=== PATIENT | female | born 1965 | race Caucasian/White ===

== ENCOUNTER → 2019-03-08 10:17 | Outpatient (CLI) | payer OTHER, SELFPAY ==
[2019-03-08 13:39] LABS: Hematocrit 40.1 % (37-47); Hemoglobin 13.4 g/dl (12.0-15.0); Mean Corp Hgb Conc 33.4 g/gl (32-36); Mean Corpuscular Hgb 30.3 pg (27.0-32.0); Mean Corpuscular Volume 90.7 fL (81-99); Mean Platelet Vol. 9.6 fl (6.2-12.0); Platelet Count 216 K/mm3 (150-450); RBC Distribution Width CV 12.5 % (11.6-14.6); RBC Distribution Width SD 41.8 fl (35.1-43.9); Red Blood Count 4.42 M/mm3 (4.2-5.4); White Blood Count 4.8 K/mm3 (4.4-11.0)
[2019-03-08 13:40] LABS: Scan Indicated on CBC? Y/N NO
[2019-03-08 13:59] LABS: Estradiol 16.4 pg/mL; Free T3 2.8 pg/mL (2.18-3.98); T4 Free Direct 1.19 ng/dL (0.76-1.46); Thyroid Stim Hormone (TSH) 0.51 uIU/mL (0.358-3.74)
[2019-03-08 14:05] LABS: Hemoglobin A1c 5.4 % (4.2-6.3)
[2019-03-08 15:13] LABS: Progesterone Level 0.04 ng/mL (See Comment)
[2019-03-09 04:07] LABS: DHEA Sulfate 15.6 ug/dL (29.4-220.5)
[2019-03-09 11:14] LABS: Thyroid Peroxidase AB 17 IU/mL (0-34)
== END ==
PROVIDERS: Visit Provider Obstetrics & Gynecology
DX: N83.209 Unspecified ovarian cyst, unspecified side (principal)
CPT/HCPCS: 36415; 82533; 82627; 82670; 83036; 84144; 84403; 84439; 84443; 84481; 85027; 86376; 82626

== ENCOUNTER → 2019-03-08 10:56 | Outpatient (CLI) | payer OTHER, SELFPAY ==
--- NOTE | 2019-03-08 11:06 | BI_ITS ---
MAMMOGRAPHY - BILATERAL SCREENING REASON FOR EXAM: Female, 54 years old. Routine annual screening examination. PERTINENT HISTORY: Mother with breast cancer. Grandmother with breast cancer. TECHNIQUE: Digital bilateral breast celina (3D mammographic acquisition) in the CC and MLO projections. 2-D mediolateral oblique (MLO) and craniocaudad (CC) views of both breasts were obtained. CAD: Full Field Digital Mammography with Computer Added Detection was performed. COMPARISON: Comparison is made with prior examination dated August 26, 2017 and December 11, 2013. FINDINGS: Breast Composition: There are scattered areas of fibroglandular density. There now is evidence of a 1.5 cm x 1.5 cm spiculated nodular density in the medial retroareolar areolar region of the left breast. This was not present on prior examination. Correlation with ultrasound is recommended for further evaluation. No other significant abnormalities are identified. BI/SCREEN MAMM (CAD) W/CELINA BILAT IMPRESSION: 1.5 cm x 1.5 cm spiculated nodular density in the medial retroareolar region of the left breast as described. Correlation with ultrasound is recommended. ASSESSMENT CATEGORY: BIRADS Category 0: Incomplete. Need additional imaging evaluation. A letter regarding these results will be sent to the patient by the facility within 30 days. Approximately 10% of breast cancers are not detected by mammography. A normal mammogram should not delay biopsy of a clinically suspicious abnormality. [id number] Electronically Signed: Harrison Cruz, at 13:55 EDT , Service support ,
--- NOTE | 2019-03-08 12:56 | US_ITS ---
STUDY: ULTRASOUND BREAST - RIGHT REASON FOR EXAM: Female, 54 years old. Abnormal screening mammogram. TECHNIQUE: Axial and longitudinal images of the RIGHT breast were performed with a high resolution ultrasound transducer. COMPARISON: Comparison is made with prior mammogram done earlier in the day. FINDINGS: RIGHT Breast: The lateral half of the right breast was examined by ultrasound. There is heterogeneous fibroglandular tissue. No solid or cystic mass lesion is seen. IMPRESSION: Unremarkable ultrasound of the lateral aspect of the right breast. ASSESSMENT CATEGORY: BIRADS Category 1: Negative. A letter regarding these results will be sent to the patient by the facility within 30 days. Electronically Signed: Harrison Cruz, at 13:57 EDT , Service support , STUDY: ULTRASOUND BREAST - LEFT REASON FOR EXAM: Female, 54 years old. Abnormal screening mammogram. TECHNIQUE: Axial and longitudinal images of the LEFT breast were performed with a high resolution ultrasound transducer. COMPARISON: Comparison is made with prior mammogram done earlier today. FINDINGS: LEFT Breast: There is a 7 mm x 9 mm x 4 mm hypoechoic irregular nodular density with posterior acoustical shadowing at the 10:00 position of the breast at 3 cm from the nipple. A similar appearing hypoechoic nodular density measuring 4 mm x 5 mm x 7 mm is seen adjacent to this nodule. Biopsies are recommended. US/Breast Limited Unilateral IMPRESSION: 2 adjacent hypoechoic irregular solid nodules with posterior acoustical shadowing are seen at the 10:00 position breast at 3 cm some the nipple. Biopsy is recommended. ASSESSMENT CATEGORY: BIRADS Category 5: Highly Suggestive of Malignancy - Appropriate Action Should Be Taken. A letter regarding these results will be sent to the patient by the facility within 30 days. Electronically Signed: Harrison Cruz, at 13:59 EDT , Service support ,
== END ==
PROVIDERS: Referring Provider Obstetrics & Gynecology; Visit Provider Obstetrics & Gynecology
DX: Z12.31 Encounter for screening mammogram for malignant neoplasm of breast (principal); R92.8 Other abnormal and inconclusive findings on diagnostic imaging of breast; Z80.3 Family history of malignant neoplasm of breast
CPT/HCPCS: 76642; 77063; 77067

== ENCOUNTER → 2019-03-16 07:54 | Outpatient (CLI) | payer OTHER, SELFPAY ==
--- NOTE | 2019-03-16 07:57 | US_ITS ---
STUDY: ULTRASOUND OF THE FEMALE PELVIS - COMPLETE REASON FOR EXAM: Female, 54 years old. Left ovarian mass TECHNIQUE: Transabdominal and transvaginal. (Transvaginal imaging, if present, was performed for enhanced visualization of uterus and endometrium, and posterior adnexal structures). COMPARISON: None. FINDINGS: Uterus anteverted, midline, 6.4 x 3.7 x 2.9 cm. Fundal fibroid 13 x 17 x 12 mm. 5 x 3 x 2 mm calcification at the margin of the uterine body endometrial. Nonspecific. Endometrial thickness 2 mm, oval echotexture. Normal cervix. Right ovary not visualized. No visible right adnexal mass or cyst. No cul-de-sac or adnexal free fluid. Left ovary 45 x 50 x 31 mm, multiple closely adjacent ovarian cysts, the largest measuring 3.4 x 2.0 x 2.8 cm and 2.5 x 2.1 x 2.1 cm. Minimally thickened internal septations, small echogenic foci in the septations possibly calcified, minimal debris. Partially complex cystic mass. US/Pelvic (Non ) IMPRESSION: Partially complex cystic mass of the left ovary as described above, with somewhat irregular and thickened septations and debris. Malignancy must be considered. Right ovary not visualized. No acute other malady of the uterus or endometrium. Electronically Signed: José Luis Nash MD at 16:06 EDT Tel , Service support ,
--- NOTE | 2019-03-16 08:16 | US_ITS ---
STUDY: ULTRASOUND OF THE FEMALE PELVIS - COMPLETE REASON FOR EXAM: Female, 54 years old. Left ovarian mass TECHNIQUE: Transabdominal and transvaginal. (Transvaginal imaging, if present, was performed for enhanced visualization of uterus and endometrium, and posterior adnexal structures). COMPARISON: None. FINDINGS: Uterus anteverted, midline, 6.4 x 3.7 x 2.9 cm. Fundal fibroid 13 x 17 x 12 mm. 5 x 3 x 2 mm calcification at the margin of the uterine body endometrial. Nonspecific. Endometrial thickness 2 mm, oval echotexture. Normal cervix. Right ovary not visualized. No visible right adnexal mass or cyst. No cul-de-sac or adnexal free fluid. Left ovary 45 x 50 x 31 mm, multiple closely adjacent ovarian cysts, the largest measuring 3.4 x 2.0 x 2.8 cm and 2.5 x 2.1 x 2.1 cm. Minimally thickened internal septations, small echogenic foci in the septations possibly calcified, minimal debris. Partially complex cystic mass. US/Transvaginal Non- IMPRESSION: Partially complex cystic mass of the left ovary as described above, with somewhat irregular and thickened septations and debris. Malignancy must be considered. Right ovary not visualized. No acute other malady of the uterus or endometrium. Electronically Signed: José Luis Nash MD at 16:06 EDT Tel , Service support ,
== END ==
PROVIDERS: Family Provider Family Medicine; PCP Family Medicine; Referring Provider Obstetrics & Gynecology; Visit Provider Obstetrics & Gynecology
DX: N83.292 Other ovarian cyst, left side (principal)
CPT/HCPCS: 76830; 76856

== ENCOUNTER → 2019-03-22 09:34 | Outpatient (CLI) | payer OTHER, SELFPAY ==
--- NOTE | 2019-03-22 | IMM_PTH ---
PATIENT: JAX ASH LOC: [facility] U#:[id number] AGE/SX: 60/F ROOM: RE03/22/[address]: Dr. Shreyas Valente MD : 1965 BED: DIS: SPEC #: [id number] RECD: 03/23/19 11:30 STATUS: DIONNE RETosha #: [id number] CRISTOPHER: 03/22/19 00:[address]: Shreyas Valente DEPT: IMMUNOHISTOCHEMISTRY RECD BY: Nelda Serrato ENTERED: 03/23/19 11:31 SP TYPE: IMMUNO OTHR DR: Dr. Enrrique Ohara MD No Primary Care Phys Tissues: B - Left breast, NOS Procedures: E-CAD (add) HER2 GUERITA (add) KI-67 (add) CT (add) ER (initial) PHYSICIAN & INSTITUTION [place] [address] SPECIMEN INFORMATION: Tissue Source: B - Larger lesion upper inner left breast Clinical Info: Abnormal left breast ultrasound Specimen Number: [id number] CPT code: 93353, 30159, 80266 x3 METHODOLOGY: Deparaffinized sections of prefer/formalin-fixed tissue or PAP/DQ stained slides are incubated with monoclonal/polyclonal antibodies/oligonucleotide probes. Localization is made via biotin free immunoperoxidase method. Appropriate controls are performed and reacted as expected. Results on target cell population are indicated in the following table: RESULTS: ANTIBODY / CLONE RESULT E-Cad (ECH-6) positive Ki-67 (30-9) positive in 10% of tumor cells MORPHOMETRIC ANALYSIS ER (clone 6F11) >90% CT (clone 16/1E2) <5% Her-2Neu (clone CB11) 1+ The prognostic test for HER2 is performed on formalin-fixed paraffin embedded tissue. A 3+ (positive) staining pattern is defined as intense, homogeneous, complete, circumferential membranous staining in >10% of contiguous tumor cells. A similar weak (2+) staining pattern is interpreted as equivocal. KAVITHA follow-up testing is recommended for all equivocal cases. Positivity/negativity for ER/CT is reported if > or < 1% of the tumor cells are immuno- reactive, respectively. The ASCO/CAP criteria is used for scoring. Reference: Journal of Clinical Oncology, 2013; 31:6080-4534 & 2010; 16:1493-0140. Duration of fixation: 11.5 hours Hrs; Sample Adequate: Yes. These assays have not been validated on decalcified tissues. Results should be interpreted with caution given the likelihood of false negativity on decalcified specimens. These tests were developed and their performance characteristics determined by [facility]. They may not have been cleared or approved by the U.S. Food and Drug Administration. The FDA has determined that such clearance or approval is not necessary. INTERPRETATION: Larger lesion, upper inner left breast, biopsy: Consistent with invasive ductal carcinoma. Positive for estrogen receptors (favorable prognostic indicator). Positive for progesterone receptors (favorable prognostic indicator). Negative for overexpression of QPR4jcs. CE:christopher 03/23/19
--- NOTE | 2019-03-22 | IMM_PTH ---
PATIENT: JAX ASH LOC: [facility] U#:[id number] AGE/SX: 60/F ROOM: RE03/22/[address]: Dr. Shreyas Valente MD : 1965 BED: DIS: SPEC #: [id number] RECD: 03/23/19 11:30 STATUS: DIONNE RETosha #: [id number] CRISTOPHER: 03/22/19 00:[address]: Shreyas Valente DEPT: IMMUNOHISTOCHEMISTRY RECD BY: Nelda Serrato ENTERED: 03/23/19 11:31 SP TYPE: IMMUNO OTHR DR: Dr. Enrrique Ohara MD No Primary Care Phys Tissues: B - Left breast, NOS A - Left breast, NOS Procedures: E-CAD (add) HER2 GUERITA (add) KI-67 (add) P53 (add) IN (add) ER (initial) PHYSICIAN & INSTITUTION [place] [address] SPECIMEN INFORMATION: Tissue Source: A - Smaller lesion upper inner left breast, B - Larger lesion upper inner left breast Clinical Info: Abnormal left breast ultrasound Specimen Number: [id number] & B CPT code: 44847 x2, 09790 x4, 63258 x6 METHODOLOGY: Deparaffinized sections of prefer/formalin-fixed tissue or PAP/DQ stained slides are incubated with monoclonal/polyclonal antibodies/oligonucleotide probes. Localization is made via biotin free immunoperoxidase method. Appropriate controls are performed and reacted as expected. Results on target cell population are indicated in the following table: RESULTS: ANTIBODY / CLONE RESULT Block A E-Cad (ECH-6) positive Ki-67 (30-9) positive ~10% P53 (DO-7) positive >50% MORPHOMETRIC ANALYSIS ER (clone 6F11) >90%, strong intensity IN (clone 16/1E2) 0% Her-2Neu (clone CB11) 0-1+ Block B E-Cad (ECH-6) positive Ki-67 (30-9) positive in 10% of tumor cells P53 (DO-7) positive >20% MORPHOMETRIC ANALYSIS ER (clone 6F11) >90%, strong intensity IN (clone 16/1E2) 0-5%, variable, weak intensity Her-2Neu (clone CB11) 1+ The prognostic test for HER2 is performed on formalin-fixed paraffin embedded tissue. A 3+ (positive) staining pattern is defined as intense, homogeneous, complete, circumferential membranous staining in >10% of contiguous tumor cells. A similar weak (2+) staining pattern is interpreted as equivocal. KAVITHA follow-up testing is recommended for all equivocal cases. Positivity/negativity for ER/IN is reported if > or < 1% of the tumor cells are immuno- reactive, respectively. The ASCO/CAP criteria is used for scoring. Reference: Journal of Clinical Oncology, 2013; 31:8384-1282 & 2010; 16:2092-6481. Duration of fixation: 11.5 hours Hrs; Sample Adequate: Yes. These assays have not been validated on decalcified tissues. Results should be interpreted with caution given the likelihood of false negativity on decalcified specimens. These tests were developed and their performance characteristics determined by [facility]. They may not have been cleared or approved by the U.S. Food and Drug Administration. The FDA has determined that such clearance or approval is not necessary. INTERPRETATION: A. Smaller lesion, upper inner left breast, core biopsy: Invasive ductal carcinoma. Positive for estrogen receptors (favorable prognostic indicator). Negative for progesterone receptors (unfavorable prognostic indicator). Negative for overexpression of USG8byc. B. Larger lesion, upper inner left breast, biopsy: Consistent with invasive ductal carcinoma. Positive for estrogen receptors (favorable prognostic indicator). Positive for progesterone receptors (favorable prognostic indicator). Negative for overexpression of EEQ4oby. CE:christopher 03/23/19 AM:christopher 04/03/19 Case has been reviewed in consultation with Dr. Pollock who concurs with the above diagnosis. IDC:SJ
[2019-03-22 07:36] VITALS: BMI 27.4
--- NOTE | 2019-03-22 07:45 | LES_PTH ---
PATIENT: JAX ASH [facility] U#:[id number] AGE/SX: 60/F ROOM: RE03/22/[address]: Dr. Shreyas Valente MD : 1965 BED: DIS: SPEC #: [id number] RECD: 03/22/19 09:10 STATUS: DIONNE NEW #: [id number] CRISTOPHER: 03/22/19 07:[address]: Shreyas Valente DEPT: SURGICAL PATHOLOGY RECD BY: Jn Dorado ENTERED: 03/22/19 09:42 SP TYPE: Lesion OTHR DR: MD Dr. Enrrique Pierre MD No Primary Care Phys Tissues: A - Skin of breast, NOS B - Skin of breast, NOS Procedures: Surgery Specimen Level IV HEADER OPERATION: Left breast biopsy x2 PRE-OP DIAGNOSIS: Abnormal left breast ultrasound TISSUE SUBMITTED: A. Smaller lesion upper inner left breast, B. Larger lesion upper inner left breast MICROSCOPIC DIAGNOSIS A. Upper inner left breast, smaller lesion, needle core biopsy: Invasive ductal carcinoma, nuclear grade 2, involving two out of two needle cores (maximal tumor dimension 0.5 cm). B. Upper inner left breast, larger lesion, needle core biopsy: Invasive ductal carcinoma, nuclear grade 2, involving three out of four needle cores (maximal tumor dimension 0.8 cm). Foci of ductal carcinoma in situ, high grade, with central necrosis. CE:christopher 03/23/19 COMMENT Immunohistochemistry ([id number]) supports the above diagnosis. Case has been reviewed in consultation with Dr. Cisneros/Phill who concurs with the above diagnosis. IDC:CHANDA MICROSCOPIC DESCRIPTION Slides are reviewed. GROSS DESCRIPTION A - Received in fixative is one container labeled with the patient's name and designated biopsy small lesion upper inner left breast. The specimen consists of yellowish-garcia cylindrical core biopsies ranging from 0.5 to 0.9 cm in length and 0.2 cm in diameter. The specimen is totally submitted in one cassette. B - Received in fixative is one container labeled with the patient's name and designated biopsy larger lesion upper inner left breast. The specimen consists of multiple yellowish-garcia cylindrical core biopsies ranging from 0.5 to 1 cm in length and 0.2 cm in diameter. The specimen is totally submitted in one cassette. / FA:christopher 03/22/19 TC:0 CPT: 06861 x2
== END ==
LOC: LABSPEC 09:36
PROVIDERS: Family Provider Family Medicine; Referring Provider Surgery; Visit Provider Surgery
DX: R92.8 Other abnormal and inconclusive findings on diagnostic imaging of breast (principal)
CPT/HCPCS: 88305; 88341; 88342

== ENCOUNTER → 2019-03-26 06:25 | Outpatient (CLI) | payer OTHER, SELFPAY ==
[2019-03-22 07:36] VITALS: BMI 27.4
--- NOTE | 2019-03-26 06:34 | MRI_ITS ---
STUDY: BILATERAL BREAST MR WITHOUT AND WITH CONTRAST REASON FOR EXAM: Female, 54 years old. Prior right duct removal. Abnormal ultrasound with 2 hypoechoic shadowing areas in the left breast for which ultrasound-guided biopsy was performed on March 22, 2019. History of breast cancer in mother at age 76 and grandmother at age 59. TECHNIQUE: Multi-sequence multi-echo imaging of both breasts was performed with a dedicated breast coil. T1-weighted and T2-weighted images were performed before the administration of contrast. T1-weighted images were also performed after the administration of 15 IV Dotarem without complications. COMPARISON: Mammograms dated August 26, 2017 and March 08, 2019 and left breast ultrasound dated March 08, 2019. FINDINGS: RIGHT BREAST: The breast tissue is fatty with minimal background enhancement. There are no abnormal enhancing masses or areas of non-mass enhancement in the right breast. LEFT BREAST: The breast tissue is fatty with minimal background enhancement. In the medial aspect of the left breast corresponding to the mammographic and ultrasonographic abnormalities there is an irregular enhancing mass measuring approximately 1.6 cm x 1.3 cm x 3 cm. There is a tissue clip marker artifact in the lower aspect of this mass. These findings are highly suspicious for carcinoma. There are no enlarged or abnormal lymph nodes. There is no abnormality in the visualized regions of the chest or liver. MRI/Breast Bilateral W/O and W IMPRESSION: Unremarkable right breast. 1.6 x 1.3 x 3 cm irregular enhancing mass in the medial aspect of the left breast corresponding to the area of ultrasonographic and mammographic abnormalities. Findings are highly suspicious for carcinoma. CATEGORY: BIRADS Category 5: Highly Suggestive of Malignancy - Appropriate Action Should Be Taken. A letter regarding these results will be sent to the patient by the facility within 30 days. Electronically Signed: Tiago Boles MD at 15:42 EDT , Service support ,
== END ==
PROVIDERS: Family Provider Family Medicine; PCP Family Medicine; Referring Provider Surgery; Visit Provider Surgery
DX: R92.8 Other abnormal and inconclusive findings on diagnostic imaging of breast (principal); Z80.3 Family history of malignant neoplasm of breast
CPT/HCPCS: 77049; A9575; A4216; C8908

== ENCOUNTER 2019-04-04 10:06 | Observation (INO) | payer OTHER, SELFPAY ==
--- NOTE | 2019-03-27 04:32 | HP_ITS ---
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: No Is patient in pain?: No Allergies erythromycin base Allergy (Intermediate, Verified 03/27/19 15:20) hives/itching benzonatate [From Tessalaysha Perlestefany] Allergy (Mild, Verified 03/27/19 15:20) Hives, itching Medications levothyroxine 100 mcg tablet 100 mcg PO DAILY 03/22/19 [History Confirmed 03/27/19] multivitamin tablet 1 tab PO DAILY 03/22/19 [History Confirmed 03/27/19] sumatriptan 25 mg tablet 12.5 mg PO ONCE PRN tab 03/22/19 [History Confirmed 03/27/19] Is last menstrual period known: No Post menopausal: Yes Patient : No PFSH Medical History (Updated 03/27/19 @ 16:19 by Shreyas Valente MD) Breast cancer (Acute) Abnormal mammogram of left breast (Acute) Abnormal mammogram (Acute) Breast cancer (Acute ~02/2019) Hemorrhoids (Acute) History of back problems (Acute) Thyroid disease (Acute) Surgical History History of (Acute) History of abdominoplasty (Acute) History of arthroscopy of left shoulder (Acute) History of back surgery (Acute) History of endometrial ablation (Acute) History of tonsillectomy (Acute) Family History Mother Breast cancer Diabetes Son Diabetes Grandmother Breast cancer Social History (Updated 03/27/19 @ 16:32 by Shreyas Valente MD) Smoking Status: Never smoker alcohol intake: never substance use type: does not use HPI HPI HPI: JAX ASH, is a 54 F who presents to the office today for HPI HPI Surgical H&P: Yes HPI: JAX ASH is a 54 F who presents to the office today for surgical follow- up of a ultrasound-guided needle core biopsy upper inner left breast x2 lesions as well as a bilateral breast MRI. My previous office notes reflect the following: MR#:[id number]:[id number] Name: JAX ASHRep #:[id number] : 1965 Provider:Shreyas Valente MD Age/Sex: 54/F Location:[facility] Status:Signed Intake Vital Signs 03/22/19 Height 5 ft 6 in 03/22/19 Weight: 170 lb 03/22/19 Body Mass Index (BMI) 27.4 03/22/19 Blood Pressure 119/80 03/22/19 Blood Pressure Location Rt brachial 03/22/19 Respiratory Rate 18 03/22/19 Pulse Rate 67 03/22/19 Pulse Source Monitor 03/22/19 Temperature 97.7 F L 03/22/19 Pulse Ox 98 03/22/19 Oxygen Delivery Method room air Intake Visit Reasons: abn breast US left --core biopsy 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 Required: No Is patient in pain?: No Allergies erythromycin base Allergy (Intermediate, Verified 03/22/19 07:37) hives/itching benzonatate [From Tessalon Perles] Allergy (Mild, Verified 03/22/19 07:39) Hives, itching Medications levothyroxine 100 mcg tablet 100 mcg PO DAILY 03/22/19 [History Confirmed 03/22/19] multivitamin tablet 1 tab PO DAILY 03/22/19 [History Confirmed 03/22/19] sumatriptan 25 mg tablet 12.5 mg PO ONCE PRN tab 03/22/19 [History Confirmed 03/22/19] PFSH Medical History Abnormal mammogram (Acute) Hemorrhoids (Acute) History of back problems (Acute) Thyroid disease (Acute) Surgical History History of (Acute) History of abdominoplasty (Acute) History of arthroscopy of left shoulder (Acute) History of back surgery (Acute) History of endometrial ablation (Acute) History of tonsillectomy (Acute) Family History Mother Breast cancer Diabetes Son Diabetes Grandmother Breast cancer Social History (Updated 03/22/19 @ 19:28 by Shreyas Valente MD) Smoking Status: Never smoker alcohol intake: never substance use type: does not use HPI: JAX ASH, is a 54 F who presents to the office today for surgical consultation regarding an abnormal left mammogram and breast ultrasound. She is accompanied by Priscilla. 54-year-old female. A0. Menarche was at age 11. First child was born when she was 18. She has had a remote excision of some right breast ducts. She was briefly on hormone replacement therapy 2012 through 2014. Family history is notable for a mother and grandmother and maternal grandmother all who had breast cancer. The patient's mother was supposed to pursue genetic testing but has not yet done so. The patient has always detected a more dense feeling of the inner aspect of the left breast. Because of some chest pain in 2013 she had a cardiac stress test which was not read as of March 08, 2019 her hemoglobin was 13.4 hematocrit 40.1 and platelet count 216,000. Thyroid function tests were normal. She is aware that she needs to have a screening colonoscopy and that is scheduled for the near future as well in [facility] . HPI HPI HPI: JAX ASH, is a 54 F who presents to the office today for ROS General General: No weight change, appetite, fatigue, colon cancer, breast cancer or weakness HEENT HEENT: No difficulty swallowing, eye injury, eye surgery, swollen glands or hoarseness Endo Endocrine: Yes thyroid disease; no diabetes mellitus, thyroid cancer, Hair loss, heat intolerance or cold intolerance Skin Skin: No rash or changing moles Breast Breast: Yes abnormal mammogram and abnormal US; no left breast lump, right breast lump, nipple discharge, breast pain or breast enlargement Musc Musculoskeletal: Yes back problems; no arthritis, rheumatoid arthritis, gout or joint pain Cardio Cardiovascular: No murmur, pacemaker, heart disease, atrial fibrillation, high blood pressure, heart attack, heart stent, palpitations, shortness of breat with exertion or chest pain Psych Psychiatric: No depression, anxiety or hearing voices Resp Respiratory: No shortness of breath, No sleep apnea, No cough, No COPD, No asthma, No emphysema, No wheezing Gastro Gastrointestinal: No abdominal pain, No nausea or vomiting, No diarrhea, No constipation, No blood in stool, No acid reflux, Yes hemorrhoids, No ulcers, No gallbladder problem, No black,tarry stools Jose Hematologic: No blood thinners, No blood disorders, No bleeding, No anemia, No blood clots Neuro Neurologic: No system reviewed and no additional complaints, except as docu, No as per HPI, No abnormal walking, No abnormal hearing, No abnormal movements, No abnormal speech, No behavioral changes, No burning sensations, No confusion, No seizure-like activity, No unsteadiness, No dizziness, No localized weakness, No frequent falls, No headache(s), No lack of coordination, No loss of vision, No memory loss, No numbness, No other visual disturbances, No radiating pain, No restless legs, No sensory deficit, No fainting, No tingling, No tremor(s), No weakness, No other Exam Const General: cooperative, healthy appearing, comfortable, no acute distress Nutritional Appearance: average body habitus Orientation: alert, awake, oriented x3 HENMT Head: normal to inspection Eyes General: appearance normal, both eyes and all related structures Chest Breast Palpation: No nipple discharge Other: Right breast. No focal mass no nipple discharge no axillary or clavicular adenopathy Left breast mild diffuse fibrous change upper inner left breast without distinct mass. No distortion. No nipple discharge. No axillary or clavicular Resp Effort & Inspection: normal respiratory effort Auscultation: clear to auscultation bilaterally Cardio Rate: regular rate Rhythm: regular rhythm Heart Sounds: no murmurs GI Palpation: soft, no hepatosplenomegaly Auscultation: normal bowel sounds Musc Cervical Spine: normal cervical lordosis Skin Lesions: no lesions Neuro Cranial Nerves: CN's II-XI intact bilaterally Extrem General: no calf tenderness bilaterally Other: Slightly diminished range of motion left shoulder secondary to recent surgery Psych Affect: normal affect Office Procedures Biopsy Provider Documentation Ultrasound-guided needle core biopsy upper inner left breast lesions x2 Timeout and informed consent was obtained. 54-year-old female is taken the procedure room placed on the table the left breast was sterilely prepped and draped. The slightly smaller and slightly larger densities in the upper inner left breast were felt to be identified although slightly challenging. Ultrasound guidance 1% lidocaine mixed 50-50 with 0.5% Marcaine was instilled as a local anesthetic. A total of 15 cc was used. A small stab incision was created in the upper mid left breast a 14-gauge Monopty needle was advanced to prefire depth pre-and post fire films were obtained 3 cores were obtained of each lesion marking clips were left in position. The specimens were immediately submitted in formalin. Pressure is held for hemostasis she did have some oozing but that was well controlled. Steri-Strip Telfa OpSite dressing applied. She tolerated the procedure quite nicely there is no apparent complication. Shreyas Valente M.D., F.A.C.S. Alert Design Drafter Chief Yes Biopsy Breast Biopsy: [id number] US Guidance (x2) Procedure Time Out Time Out Informed consent given: Yes Consent signed: Yes Time out checklist: patient, procedure, site marked/identified, positioning of patient, supplies available, allergies confirmed, team agrees on procedure Time out staff in room: Yes Time out verified: Yes Time out date: 03/22/19 Time out time: 07:38 Assessment & Plan Problems 1. Abnormal mammogram of left breast R92.8 Plan Abnormal mammogram upper inner left breast with 2 lesions highly suspicious for breast cancer. In detail I have discussed this possibility/probability with the patient. I do recommend bilateral breast MRI. Priscilla was present throughout the discussion. It is of note that the patient had some mild abnormality seen on right breast mammogram which was not confirmed with right breast ultrasound. This will also be investigated with MRI. Patient will return to my office for pathology discussion. If this area is localized to the upper inner left breast then she would still be a candidate for breast conservation surgery. Hematology oncology consultation while want to be obtained preprocedure secondary to the patient's family history. As noted genetic testing is still pending. She has had an opportunity to ask and have questions answered. I very much appreciate the kind opportunity of assisting with her surgical care and will pursue ongoing follow-up. Dr. Tarsha Woods is pursuing the left ovarian cystic issue. Shreyas Valente M.D., F.A.C.S. Orders Orders: Biopsy Today R92.8 Breast Bilateral W/O and W Today R92.8, Z80.3 Coding Level of Care Code Off vis,new,level 4 Diagnoses Abnormal mammogram of left breast R92.8 Additional Codes Biopsy - Breast Biopsy: 12586 US Guidance (75323) 03/22/191927<Electronically signed by Shreyas Valente MD> Date Shreyas Valente MD ROS General General: No weight change, appetite, fatigue, colon cancer, breast cancer or weakness HEENT HEENT: No difficulty swallowing, eye injury, eye surgery, swollen glands or hoarseness Endo Endocrine: Yes thyroid disease; no diabetes mellitus, thyroid cancer, Hair loss, heat intolerance or cold intolerance Skin Skin: No rash or changing moles Breast Breast: Yes abnormal mammogram and abnormal US; no left breast lump, right breast lump, nipple discharge, breast pain or breast enlargement Musc Musculoskeletal: Yes back problems; no arthritis, rheumatoid arthritis, gout or joint pain Cardio Cardiovascular: No murmur, pacemaker, heart disease, atrial fibrillation, high blood pressure, heart attack, heart stent, palpitations, shortness of breat with exertion or chest pain Psych Psychiatric: No depression, anxiety or hearing voices Resp Respiratory: No shortness of breath, No sleep apnea, No cough, No COPD, No asthma, No emphysema, No wheezing Gastro Gastrointestinal: No abdominal pain, No nausea or vomiting, No diarrhea, No constipation, No blood in stool, No acid reflux, Yes hemorrhoids, No ulcers, No gallbladder problem, No black,tarry stools Jose Hematologic: No blood thinners, No blood disorders, No bleeding, No anemia, No blood clots Neuro Neurologic: No weakness Exam Chest Breast Palpation: No nipple discharge Cardio Heart Sounds: no murmurs Assessment & Plan Problems 1. Malignant neoplasm of upper-inner quadrant of left breast in female, estrogen receptor positive C50.212; Z17.0 Plan 54-year-old female who returns for 30-minute office consultative discussion regarding biopsy and MRI results. It is pertinent that the patient's mother and maternal grandmother and great paternal grandmother all had breast cancer. The patient's mother was to pursue genetic testing after her recent diagnosis but is currently scheduled September 2019 for this consultation. The patient had 2 lesions within close proximity upper inner left breast. On March 22 I performed a ultrasound-guided needle core biopsy of these 2 areas. Both appear to be invasive ductal carcinoma, nuclear grade 2, estrogen receptor greater than 90%. Progesterone receptor less than 5%. HER-2/glenda 1+. Because of the double lesions upper inner quadrant left breast I did pursue a breast MRI on March 26, 2019 at the [facility]. This demonstrates an unremarkable right breast. There is a 1.6 x 1.3 x 3 similar irregular enhancing mass medial aspect of the left breast findings highly suspicious for carcinoma BI-RADS 5. It is of note therefore that the MRI seems to conglomerate the 2 lesions into 1 general area. Today's discussion regarding treatment options. The patient has already done a significant amount of research. 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 She is interested in pursuing a therapeutic left mastectomy and a prophylactic right mastectomy. In detail I discussed the potential for nuclear tracer and blue dye left axillary sentinel lymph node biopsies with frozen section and possible conversion to a level 1 and 2 axillary lymph node dissection with a left total mastectomy. We discussed the addition of a prophylactic right total mastectomy. We compared and contrasted that to breast conservation surgery on the left. We discussed the potential for immediate or delayed reconstruction. The patient expressed concern regarding immediate reconstruction and the possible influence it might have on delaying additional treatment. She also recants that she is in need of a robotic hysterectomy because of the left ovarian finding which is currently felt to be benign but requiring definitive surgery. She has had an opportunity to ask and have questions answered. I believe that her thought process is logical. I am requesting hematology oncology consultation preoperatively patient and family request Dr. Mcdaniels. Patient's works at [employer] and wants to stay within the [facility] cancer [facility] program. Tentatively we will schedule definitive surgery for April 04, 2019 allowing for preoperative consultation. I very much appreciate the ongoing opportunity of assisting with her surgical care. CC:Dr Enrrique Ohara and Dr Tarsha Woods and Dr. Tavo Valente M.D., F.A.C.S. Orders Referrals: Oncology C50.919 Coding Level of Care Code Off vis,est,level 3 Diagnoses Malignant neoplasm of upper-inner quadrant of left breast in female, estrogen receptor positive C50.212; Z17.0 ??Breast location: upper inner quadrant of breast ??Estrogen receptor status: positive ??Patient sex: female ??Laterality: left 03/27/19 1633 <Electronically signed by Shreyas romano MD> Date _ Shreyas Valente MD I have re-examined the patient. There are no clinical changes since date of exam.
[2019-03-27 15:20] VITALS: BMI 27.4
[2019-04-02 15:03] VITALS: BMI 28.3
--- NOTE | 2019-04-02 16:07 | EKG12_ITS ---
Test Reason : PRE OP Blood Pressure : / mmHG Vent. Rate : 056 BPM Atrial Rate : 056 BPM P-R Int : 150 ms QRS Dur : 074 ms QT Int : 444 ms P-R-T Axes : 062 024 035 degrees QTc Int : 428 ms Sinus bradycardia Otherwise normal ECG Confirmed by DK CHACKO, VON ([id number]), video effects editor GABO GRACIA ([id number]) on 04/03/2019 1:33:58 PM Referred By: Shreyas Valente Confirmed By:VON ROOT MD
--- NOTE | 2019-04-02 16:10 | RAD_ITS ---
STUDY: X-RAY CHEST REASON FOR EXAM: Female, 54 years old. Preop mastectomy TECHNIQUE: PA and lateral views of the chest. COMPARISON: None. FINDINGS: The lateral view demonstrates partial visualization of a biopsy marker within the left breast. The lungs are clear and expanded. There is no demonstrated pleural abnormality. Normal size heart. Normal mediastinum and colleen. Normal visualized pulmonary arteries. Normal visualized aortic arch and descending thoracic aorta. There are diffuse degenerative changes of the visualized thoracic spine. Normal visualized ribs, clavicles, and shoulders. There is no demonstrated abnormality of the visualized soft tissue structures of the upper abdomen. RAD/Chest PA and Lateral IMPRESSION: No visualized focal infiltrate. Biopsy marker left breast. Electronically Signed: Celia Cruz MD at 17:25 EDT Tel , Service support ,
[2019-04-02 16:34] LABS: ALB/GLOB Ratio 1.1 RATIO (0.9-2.4); AST(SGOT) 22 U/L (15-37); Alanine Aminotransfer ALT/SGPT 24 U/L (13-56); Albumin, Serum 3.6 g/dL (3.2-5.0); Alkaline Phosphatase 94 U/L (45-117); Anion Gap 2 (5-15); BUN 11 mg/dL (7-18); BUN/Creat Ratio 13.6 RATIO (10-20); Calcium,Total 8.6 mg/dL (8.5-10.1); Chloride 109 mmol/L (98-107); Creatinine, Serum 0.81 mg/dL (0.55-1.02); EST Glomerular Filtration Rate 78 mL/min (>60); Est Glom Filt Rate - Afr Amer 94 mL/min (>60); Globulin 3.2 g/dL (2.2-4.2); Glucose 85 mg/dL (74-106); Protein, Total 6.8 g/dL (6.4-8.2); Sodium Level 141 mmol/L (136-145)
[2019-04-04] VITALS (10 sets, daily range): BP systolic 91–134; BP diastolic 59–78; PULSE 55–67; RESP 16–18; TEMP 35.9–37.1; O2SAT 94–99; BMI 28.0
--- NOTE | 2019-04-04 | IMM_PTH ---
PATIENT: JAX ASH LOC: MS2 U#:[id number] AGE/SX: 54/F ROOM: MS212 RE04/04/[address]: Dr. Shreyas Valente MD : 1965 BED: 1 DIS: 04/05/2019 SPEC #: [id number] RECD: 04/09/19 11:55 STATUS: DIONNE REQ #: [id number] CRISTOPHER: 04/04/19 00:[address]: Shreyas Valente DEPT: IMMUNOHISTOCHEMISTRY RECD BY: Nelda Serrato ENTERED: 04/09/19 11:56 SP TYPE: IMMUNO OTHR DR: Dr. Enrrique Ohara MD Tissues: A - Axillary lymph node, NOS Procedures: CK7 (add) Pankeratin (initial) Pankeratin (add) PHYSICIAN & INSTITUTION [place] [address] SPECIMEN INFORMATION: Tissue Source: A - Left sentinel lymph nodes, biopsy Clinical Info: Malignant neoplasm of upper inner quadrant left breast, ER positive Specimen Number: [id number] A1-A4 CPT code: 16333, 73226 x7 METHODOLOGY: Deparaffinized sections of prefer/formalin-fixed tissue or PAP/DQ stained slides are incubated with monoclonal/polyclonal antibodies/oligonucleotide probes. Localization is made via biotin free immunoperoxidase method. Appropriate controls are performed and reacted as expected. Results on target cell population are indicated in the following table: RESULTS: ANTIBODY / CLONE RESULT Block A1 AE1-3 (AE1/AE3/PCK26) negative CK7 (OV-TL12/30) negative Block A2 AE1-3 (AE1/AE3/PCK26) negative CK7 (OV-TL12/30) negative Block A3 AE1-3 (AE1/AE3/PCK26) negative CK7 (OV-TL12/30) negative Block A4 AE1-3 (AE1/AE3/PCK26) negative CK7 (OV-TL12/30) negative These tests were developed and their performance characteristics determined by [facility]. They may not have been cleared or approved by the U.S. Food and Drug Administration. The FDA has determined that such clearance or approval is not necessary. INTERPRETATION: A. Left sentinel lymph nodes, biopsy: Five out of five lymph nodes, negative for metastatic carcinoma. SJ:christopher 04/10/19
--- NOTE | 2019-04-04 | AXNB_PTH ---
PATIENT: JAX ASH LOC: MS2 U#:[id number] AGE/SX: 54/F ROOM: MS212 RE04/04/[address]: Dr. Shreyas Valente MD : 1965 BED: 1 DIS: 04/05/2019 SPEC #: [id number] RECD: 04/04/19 11:19 STATUS: DIONNE RETosha #: [id number] CRISTOPHER: 04/04/19 00:[address]: Shreyas Valente DEPT: SURGICAL PATHOLOGY RECD BY: Nelda Serrato ENTERED: 04/04/19 12:21 SP TYPE: AX NODE BX OTHR DR: Dr. 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 Left sentinel lymph nodes, biopsy: Five out of five lymph nodes are negative for metastatic carcinoma. SJ:christopher 04/04/19 MICROSCOPIC DIAGNOSIS A. Left sentinel lymph nodes, biopsy: Five out of five lymph nodes, negative for metastatic carcinoma. See comment. B. Left breast, mastectomy: Invasive ductal carcinoma. Ductal carcinoma in situ. See cancer summary below. C. Right breast, mastectomy: Benign breast tissue with focal ductal dilatation. Negative for atypia or malignancy. SJ: 04/09/19 INVASIVE BREAST CANCER SUMMARY: (Including specimens A & B) Specimen - total breast (including nipple and skin). Procedure - total mastectomy (including nipple and skin). Lymph node sampling - sentinel lymph nodes Specimen integrity - single intact specimen Specimen laterality - left Tumor site - upper inner quadrant Tumor size: Size of largest invasive carcinoma - 3 x 2 x 1.5 cm Tumor focality - two foci of invasive carcinoma. Size of foci: Larger tumor - 3 x 2 x 1.5 cm Smaller tumor - 0.7 x 0.4 cm (measured microscopically) See comment. Macroscopic and Microscopic extent of tumor: Skin - invasive carcinoma does not invade into the dermis or epidermis. Nipple - ductal carcinoma in situ does not involve nipple epidermis. Skeletal muscle - skeletal muscle is present and is free of carcinoma. Ductal carcinoma in situ (DCIS) - DCIS is present. Extensive intraductal component (EIC) - positive Estimated size (extent) of DCIS - DCIS comprise about 25% of the total tumor volume. Number of blocks with DCIS - 5 Number of blocks examined - 12 Architectural patterns - solid, comedo and cribriform Nuclear grade - grade 3 (high) Necrosis - present, center (expansive comedo necrosis) Lobular carcinoma in situ (LCIS) - not identified Histologic type of invasive carcinoma - invasive ductal carcinoma (no special type) Histologic Grade (Kika grade): Larger tumor: Glandular/tubular differentiation - score 3 Nuclear pleomorphism - score 3 Mitotic count - score 2 Overall grade - 3 (score of 8) Smaller tumor: Glandular/tubular differentiation - score 3 Nuclear pleomorphism - score 2 Mitotic count - score 1 Overall grade - 2 (score of 6) Margins - Margins uninvolved by invasive carcinoma and ductal carcinoma in situ. Both invasive carcinoma and ductal carcinoma in situ are 4 cm away from the closest posterior margin. Treatment effect: Response to presurgical (neoadjuvant) therapy - no known presurgical therapy. Lymph-Vascular invasion - not identified Dermal lymph-vascular invasion - not identified Lymph nodes: Number of sentinel lymph nodes examined - 5 Total number of lymph nodes examined (sentinel and nonsentinel) - 5 Number of lymph nodes with macrometastases, micrometastases and isolated tumor cells - 0 Method of evaluation of sentinel lymph nodes - H & E, multiple levels and IHC. Distant metastasis - not applicable Additional pathologic findings - focal changes consistent with previous biopsy site Ancillary studies - previously performed on section of tumor ([id number] / [id number]). Smaller tumor: ER - positive (>90%, strong intensity) AZ - negative (0%) Her2 glenda - negative (0-1+) Larger tumor: ER - positive (>90%, strong intensity) AZ - positive (variable, 0 to 5%, weak intensity) Her2 glenda - negative (1+) Microcalcifications - not identified Clinical history - Please make reference to previous specimen ([id number]) upper inner left breast, smaller lesion, needle core biopsy with diagnosis of invasive ductal carcinoma and upper inner left breast, larger lesion, needle core biopsy with diagnosis of invasive ductal carcinoma and ductal carcinoma in situ. PATHOLOGIC STAGE: pT2(m) pN0(sn) Mx The above summary is in compliance with [employer] (CAP) Cancer Protocols Checklist and [place] [employer] Committee on Cancer (AJCC), Staging Manual, 8th Ed. COMMENT A. The lymph nodes are negative for metastatic carcinoma on multiple H & E levels and immunohisto-chemical stains for cytokeratins ([id number]). B. The smaller focus of invasive carcinoma including hemorrhagic cavity and area of ductal carcinoma in situ, grossly measure 1 cm in greatest dimension. Smaller focus of invasive carcinoma measures 0.7 cm in greatest dimension. Case has been reviewed in consultation with Dr. Cisneros who concurs with the above diagnosis. IDC:AM MICROSCOPIC DESCRIPTION Slides are reviewed. GROSS DESCRIPTION A - Received fresh for frozen section diagnosis labeled with the patient's name is a specimen designated left breast sentinel lymph node tissue. The specimen consists of a piece of yellow adipose tissue measuring 8 x 4 x 2 cm. Five lymph nodes are identified measuring 0.5 to 1.5 cm in greatest dimension. The lymph nodes are submitted in entirety for frozen section diagnosis as follows: 1 - frozen section, one bisected lymph node, 2 - frozen section, one bisected lymph node, 2 - frozen section, two lymph nodes, 4??frozen section, one lymph node. / SJ:christopher 04/04/19 B - Received in fixative is one container labeled with the patient's name and designated left breast mastectomy tissue. The specimen consists of a mastectomy specimen consisting of breast tissue with overlying skin ellipse measuring 24 x 21 x 6 cm. The overlying skin ellipse measures 17.5 x 7 cm. No skin lesion is identified. The specimen is oriented by a suture marking the lateral margin. The specimen is inked as follows: superior - blue, inferior - green, medial - red, lateral - orange, posterior - black. More dictation will follow after overnight fixation. / SJ: 04/04/19 The nipple appears to be flattened and measures 1 cm in greatest dimension. Sections of the breast tissue reveal two masses in the upper inner portion of breast. The larger mass measures 3 x 2 x 1.5 cm. The second smaller mass consists of hemorrhagic cavity and 0.5 cm away from the larger mass and measures 1 x 1 x 0.5 cm. Sections of the larger mass show a metallic clip. Both masses are 4 cm away from the closest posterior margin. Sections of the rest of the breast tissue reveal yellow adipose cut surfaces mixed with scant, fibrous area. Air Crew Member sections are submitted in 12 cassettes as follows: 1 - nipple, entirely submitted, 2 - perpendicular medial and lateral margins and skin, 3 - perpendicular superior margin, inferior margin and posterior margin, 4 - hemorrhagic cavity/smaller mass, entirely submitted, 5-7 - larger tumor mass, 8 & 9 - medicare sales representative sections adjacent to the larger tumor mass, 10-12 - medicare sales representative sections away from the mass. Sections will be submitted after additional fixation. / SJ: 04/05/19 C - Received in fixative is one container labeled with the patient's name and designated right breast mastectomy tissue. The specimen consists of a mastectomy specimen consisting of breast tissue with overlying skin ellipse measuring 21 x 22 x 6 cm. The overlying skin ellipse measures 19 x 6.5 cm. The nipple is flattened and measures 1 cm in greatest dimension. The specimen is oriented by a suture marking the lateral aspect of the specimen. The specimen is inked as follows: superior margin - blue, inferior margin - green, medial margin - red, lateral margin - orange, posterior margin - black. No skin lesion is identified. No skeletal muscle tissue is noted on the posterior margin. Sections reveal garcia-yellow adipose cut surfaces mixed with scant fibrous area. No mass lesion is identified. Sections will be submitted after overnight fixation. / SJ: 04/04/19 submitted as follows: 1 - nipple, entirely submitted, 2-4 - medial portion of breast tissue, 5-7 - middle Air Crew Member sections are portion of breast tissue, 8-10 - lateral portion of breast tissue. Sections will be submitted after additional fixation. / SJ:rg 04/05/19 TC:0 CPT: 75159 x3, 49382, 29924 x3 ADDENDUM ADDENDUM ADDENDUM ADDENDUM ADDENDUM ADDENDUM ADDENDUM ADDENDUM 05/10/2019 10:14 ADDENDUM 05/10/2019 10:14 ADDENDUM 05/10/2019 10:14 ADDENDUM 05/10/2019 10:14 ADDENDUM 05/10/2019 10:14 An order for Oncotype testing was received from Dr. Mcdaniels. This necessitated case review, block and slide selection by pathologist at [facility]. Breast Cancer Recurrence Score = 28 Results of the complete Oncotype testing ([employer] report) are viewable in EMR under: Reports - Pathology - Lab Pathology Report, Scanned.
--- NOTE | 2019-04-04 07:45 | NM_ITS ---
PROCEDURE: NUCLEAR MEDICINE Injection Hewlett Node - LEFT breast(s). REASON FOR EXAM: Female, 54 years old. Left breast cancer. TECHNIQUE: Hewlett node localization using radionuclide methods of the LEFT breast(s) was performed following subcutaneous administration of 1.1 mCi of of sulfur colloid Tc-99m. FINDINGS: 1.1 mCi of technetium labeled sulfur colloid was injected at the biopsy site subcutaneously. NM/Lymph Node Injection Only IMPRESSION: Injection of 1.1 mCi of technetium labeled sulfur colloid for sentinel node imaging. Electronically Signed: Harrison Cruz, at 8:36 EDT , Service support ,
--- NOTE | 2019-04-04 10:01 | PCM.DC.GS ---
Discharge Diet: No Restrictions Discharge Activity: May Not Drive - for 3-5 days or while taking narcotic pain medicine., May Not Shower Lifting Restrictions: 10 pounds Call your doctor if your incision/area has: Continuous Slow Oozing, Sudden Increased Bleeding, Increased Pain/ Swelling, Increased Redness, Foul Smelling Discharge Call your doctor if you observe: Fever of 101 or Higher Suture Line Care: Avoid Pulling/Pushing, Avoid Pinching/Bending Additional Dressing/Incision Instructions:: You may change your dressings daily. The incisions will not require specific care. Utilize a Q-tip and peroxide to cleanse around the drain sites apply dry gauze and tape daily. Protect the incisions with dry gauze or ABD type dressings. Empty and measure and record the drain output Allergies/Adverse Reactions: Allergies erythromycin base Allergy (Intermediate, Verified 04/04/19 07:39) hives/itching benzonatate [From Tesjohanne Nina] Allergy (Mild, Verified 04/04/19 07:39) Hives, itching Medications to take at Discharge levothyroxine 100 mcg tablet 100 mcg PO DAILY 03/22/19 multivitamin tablet 1 tab PO DAILY 03/22/19 sumatriptan 25 mg tablet 12.5 mg PO ONCE PRN tab 03/22/19 Hydrocodone Bitart/Apap 5-325 [[place] 5MG-325MG] 1 tab PO Q4H PRN PRN 3 Days #10 tab 04/04/19 The following prescriptions were given: Hydrocodone Bitart/Apap 5-325 [[place] 5MG-325MG] 1 tab PO Q4H PRN PRN 3 Days #10 tab PRN Reason: Pain Transmission Status: Received by [facility] Primary Care Physician: Enrrique Ohara MD [Primary Care Provider] - Test Results: Test results from this visit will be discussed in further detail at your follow-up appointment, if applicable. Please Follow Up With: Shreyas Valente MD - [phone] When: Call to make an appointment to be seen on Tuesday
[2019-04-04] MEDS: Isosulfan Blue 1% 5 ML Vial (10:23)
[2019-04-04] MEDS: Cefazolin 2 GM in 0.9% Normal Saline 100 ML IV (10:35)
--- NOTE | 2019-04-04 13:41 | OP.PCM_ITS ---
Problem List (1) Cancer of left female breast Status: Acute Qualifiers: Breast location: upper inner quadrant of breast Estrogen receptor status: positive Qualified Code(s): C50.212 - Malignant neoplasm of upper-inner quadrant of left female breast; Z17.0 - Estrogen receptor positive status [ER+] Report of Operation Date of Procedure: 04/04/19 Pre-Operative Diagnosis: Invasive ductal carcinoma medial left breast Post-Operative Diagnosis: Same Surgery/Procedure Performed:: Left total mastectomy with nuclear tracer and isosulfan blue dye left axillary sentinel lymph node biopsy. Prophylactic right total mastectomy Description of Surgical Findings:: Timeout and informed consent was obtained. 54-year-old female was taken to the operating room placed spinal table underwent general anesthesia. Ancef 2 g given intravenously preoperatively. Nuclear tracer is been injected by radiology in the left breast preoperatively. Carefully both arms were carefully wrapped with soft roll and then placed at right angles to the table. Each breast was prepped with chlorhexidine. Isosulfan blue dye was injected in the left breast 3.5 cc in the retroareolar position of massage was performed for 3 minutes. A transverse elliptical excision was performed the left breast superior and inferior flaps were tediously created using electrocautery for hemostasis and were needed interrupted 3-0 Vicryl suture ligature. Dissection was then performed into the axilla were excellent blue dye tracing of lymphatics were identified to 2 separate blue lymph node tracts. I then used sharp and blunt dissection and electrocautery dissection and hemoclips to excise these initial set of lymph nodes. That packet of material was sent to pathology and report was eventually returned with 5 sentinel lymph nodes all negative. The inferior flap was created similar to the superior flap trying to assure that the vast majority of breast tissue was incorporated in this dissection. The breast tissue was dissected off the chest wall pectoralis major muscle taking the fascia with it. Hemostasis was then assured with electrocautery. Sterile water was used to irrigate the chest wall. 2 stab incision was made inferior and lateral and 15 round BRUCE drains were exited. The axillary drain was shortened in length. Then the wound was closed with multiple interrupted 3-0 Vicryl sutures and interrupted 4-0 Monocryl sutures. As the wound was tediously closed at the skin flaps were tacked to the chest wall with interrupted 3-0 Vicryl in an attempt to obliterate space. That incision was completely closed. Steri- Strips applied. Gowns gloves changed. The area was read draped. A right total mastectomy was now created. All attempts were made to match the transverse elliptical incision to be identical to the left. In a similar fashion superior and inferior flaps were raised. An axillary node sampling was not performed on the right as this was a prophylactic mastectomy. The breast tissue was excised off the pectoralis major muscle however taking the fascia with it in case it was an incidental carcinoma present within the specimen. Hemostasis was achieved with electrocautery and 3-0 Vicryl sutures. Again the skin edges were approximated in similar fashion on the left with interrupted 3-0 Vicryl and interrupted 4-0 Monocryl and pleating sutures of interrupted 3-0 Vicryl so as to obliterate space and tacked the skin flaps to the anterior chest wall. A single drain had been used on the right of 15 round BRUCE through a stab incision inferior and lateral to the wound. This was placed to the flap area. It was secured to the skin as on the left with interrupted 3-0 nylon suture. Both mastectomy sites were inspected they were felt to be very close to being identical to the skin flaps appear to be quite viable at. Telfa all bulky dry dressings and by supply wrap was applied. Sponge and instrument and needle count were reported to the surgeon to be correct. Specimens include sentinel lymph nodes on the left. Bilateral total mastectomies. Drains 2 BRUCE drains on the left. One BRUCE drain on the right. Blood loss 200 cc. The patient was taken to the recovery area in satisfactory condition without apparent complication. Shreyas Valente M.D., F.A.C.S. Type of Anesthesia:: General Anesthesiologist: Flaquita Fierro
[2019-04-04] MEDS: Morphine 2 MG/ML Syringe IV ×2 (15:43→18:19)
[2019-04-04] MEDS: Lactated Ringers 1,000 ML 30 ML IV (15:47)
[2019-04-04] MEDS: HYDROcodone Bitartrate/Apap 5/325 Tablet PO (22:01)
[2019-04-05 02:00] VITALS: BP 114/60; PULSE 70; RESP 16; TEMP 36.6; O2SAT 100
--- NOTE | 2019-04-05 05:22 | PCM.PN.SRG ---
Patient Problems: Active and Suspected Problems (Last Updated 04/02/19 @ 15:11 by Tavo Mcdaniels MD) Cancer of left female breast (Acute) Subjective: Pt feeling better this a.m., mainly tight and a little sore - Physical Exam Lungs: - - Flaps very clean and dry and healthy appearing BRUCE output starting to clear Vital Signs Temp Pulse Resp BP Pulse Ox 97.9 F 70 16 114/60 100 04/05/19 02:00 04/05/19 02:00 04/05/19 02:00 04/05/19 02:00 04/05/19 02:00 Oxygen Delivery Method Room Air Weight: 173 lb 11.588 oz Body Mass Index (BMI) 28.0 Intake and Output for Last 24 Hours 04/03/19 04/04/19 04/05/19 23:59 23:59 23:59 Intake Total 2637 / 3675 1038 / 1038 Output Total 1095 / 1750 655 / 655 Balance 1542 / 1925 383 / 383 Medical Necessity - Tobacco Use Smoking Status: Never smoker Tobacco Use: Non-smoker Assessment/Plan All Active Problems (Last Updated 04/02/19 @ 15:11 by Tavo Mcdaniels MD) Cancer of left female breast (Acute) Plan discharge today
[2019-04-05] MEDS: HYDROcodone Bitartrate/Apap 5/325 Tablet PO (05:42)
[2019-04-05] MEDS: Levothyroxine 100 MCG Tablet PO (05:43)
[2019-04-05 08:21] VITALS: BP 148/83; PULSE 66; RESP 18; TEMP 36.7; O2SAT 100
--- NOTE | 2019-04-05 08:52 | NURSING ---
In to see patient for dressing and drain care. [facility] had already changed dressing and drain dressings this am. drain sites had been cleansed with peroxide as ordered and new dressings applied. Reviewed the mastectomy booklet with the patient and gave patient dressing supplies, cups to record the drainage, and sheets to keep track of the drainage for follow up appt. Pt states her will assist with the drain care at home. Pt denies further questions or needs at this time. Sister, Priscilla in to see patient.
== END 2019-04-05 10:05 | disposition home or self-care (01) ==
LOC: SDC 12:25 → MS2 04-05 09:42
PROVIDERS: Admitting Provider Surgery; Family Provider Family Medicine; PCP Family Medicine; Referring Provider Surgery; Visit Provider Surgery
PROC: (CPT 19307; principal; 2019-04-04 09:30)
DX: C50.212 Malignant neoplasm of upper-inner quadrant of left female breast (principal); Z17.0 Estrogen receptor positive status [ER+]; E07.9 Disorder of thyroid, unspecified; Z79.899 Other long term (current) drug therapy; Z80.3 Family history of malignant neoplasm of breast; Z40.01 Encounter for prophylactic removal of breast
CPT/HCPCS: 19303; 38525; 36415; 38792; 71046; 80053; 88305; 88307; 88309; 88331; 88332; 88341; 88342; 93005; 96374; 96376; 99218; A9541; J7120; G0378; G0379; J2405; Q9968

== ENCOUNTER → 2019-06-12 08:28 | Outpatient (CLI) | payer OTHER, SELFPAY ==
[2019-05-14 09:27] VITALS: BMI 28.2
[2019-06-06 08:58] VITALS: BMI 27.6
--- NOTE | 2019-06-12 08:30 | BD_ITS ---
STUDY: DUAL ENERGY X-RAY ABSORPTIOMETRY / DXA REASON FOR EXAM: Female, 54 years old. The patient is postmenopausal. Loss of height. History of breast cancer. TECHNIQUE: Bone Mineral Density (BMD) measurements of lumbar spine and bilateral hips were obtained. COMPARISON: None. FINDINGS: Lumbar Spine (L1-L4): g/cm2 (1.306) / T-score (1.0) / Z-score (2.0) Findings are suggestive of normal bone density with a low fracture risk. Left Femur Total: g/cm2 (0.956) / T-score (-0.4) / Z-score (0.3) Left Femoral Neck: g/cm2 (0.921) / T-score (-0.8) / Z-score (0 point) Right Femur Total: g/cm2 (0.928) / T-score (-0.6) / Z-score (0.1) Right Femoral Neck: g/cm2 (0.895) / T-score (-1.0) / Z-score (0.0) BD/Dexa Bone Density Study IMPRESSION: The patient is considered normal as outlined below according to World [place] Organization (WHO) criteria with a low fracture risk. Reference Information: The T-score is the number of standard deviations above or below the standard which is normal for young adults at their peak bone mineral density. The World Health Organization (WHO) interprets the T-scores as follows: Above -1 Normal bone density Between -1 and -2.5 Osteopenia Equal to / or below -2.5 Osteoporosis As a practical clinical guideline, osteopenia may be graded as follows: Mild -1 through -1.5 Moderate -1.6 through -2.0 Severe -2.1 through -2.4 The Z-score is the number of standard deviations above or below age-matched controls. A Z-score of less than -1.5 would be considered abnormal. References: 1. NIH Osteoporosis and Related Bone Diseases http://www.osteo.org 2. International Society for Clinical Densitometry http://www.iscd.org 3. National Osteoporosis Foundation http://www.nof.org Electronically Signed: Harrison Cruz, at 15:07 EDT , Service support ,
== END ==
PROVIDERS: Family Provider Family Medicine; PCP Family Medicine; Referring Provider Internal Medicine Hematology & Oncology; Visit Provider Internal Medicine Hematology & Oncology
DX: C50.912 Malignant neoplasm of unspecified site of left female breast (principal); Z78.0 Asymptomatic menopausal state
CPT/HCPCS: 77080

== ENCOUNTER 2019-06-28 09:21 | Day surgery (SDC) | payer OTHER, SELFPAY ==
[2019-06-06 08:58] VITALS: BMI 27.6
[2019-06-28] VITALS (7 sets, daily range): BP systolic 121–152; BP diastolic 68–103; PULSE 61–91; RESP 14–16; TEMP 35.9–36.3; O2SAT 94–99; BMI 28.0
[2019-06-28] MEDS: Lactated Ringers 1,000 ML 30 ML IV ×2 (10:06→12:53)
--- NOTE | 2019-06-28 11:28 | HP.PCM_ITS ---
Problem List (1) Cancer of left female breast Status: Acute Qualifiers: History and Physical Date of Admission: 06/28/19 ADDENDUM by Shreyas Valente MD on 06/05/19 at 1807 Addendum entered and electronically signed by Shreyas Valente MD 06/05/19 18:07: [facility] dated June 01, [address] scan. Small acute pulmonary embolus in the medial segmental artery of the right middle lobe extending into a sub-segmental branch. Small pulmonary emboli also noted in the right middle lobe lateral sub-segmental arterial branches and right lower lobe lateral and posterior basilar sub-segmental branches. No embolus identified on the left. There is additional patchy subpleural consolidative opacity posterior right lower lobe possibly related to atelectasis or small pul monary infarcts. Small right pleural effusion. At that time her heat white blood cell count was 8.8 with a hemoglobin 11.8 and hematocrit 35.1 and platelet count 192,000. BUN was 7 and creatinine 0.6. The patient was felt to have pulmonary embolization subsequent to a robotic MARRY with BSO performed at the [facility] on May 12, 2019. Intake Chief Complaint: post bilateral mastectomy Allergies erythromycin base Allergy (Intermediate, Verified 06/05/19 12:56) hives/itching benzonatate [From Tessalaysha Nina] Allergy (Mild, Verified 06/05/19 12:56) Hives, itching Medications levothyroxine 100 mcg tablet 100 mcg PO DAILY 03/22/19 [History Confirmed 06/05/19] multivitamin tablet 1 tab PO DAILY 03/22/19 [History Confirmed 06/05/19] sumatriptan 25 mg tablet 12.5 mg PO ONCE PRN tab 03/22/19 [History Confirmed 06/05/19] hydrocodone 5 mg-acetaminophen 325 mg tablet 1 tab PO Q6H PRN #10 tab 04/24/19 [Rx Confirmed 06/05/19] lidocaine 5 % topical patch 1 patch TOPICAL DAILY PRN #15 ea 04/24/19 [Rx Confirmed 06/05/19] rivaroxaban 15 mg tablet 15 mg PO BID 06/05/19 [History Confirmed 06/05/19] Assessment & Plan Problems 1. Postoperative pulmonary embolism, initial encounter T81.718A; I26.99 2. History of robot-assisted laparoscopic hysterectomy Z90.710 3. Malignant neoplasm of upper-inner quadrant of left breast in female, estrogen receptor positive C50.212 Plan - Shreyas Valente MD I recommended to the patient a right internal jugular port placement and have discussed the technique, benefit, risks, alternatives. It is of note however that she has just incurred a right-sided multiple pulmonary embolization. We will check with Dr. Mcdaniels regarding timing of her initiation of chemotherapy. She is currently on Xarelto 15 mg orally twice daily for 21 days. This is the starter pack. We would likely have her hold her medication the evening before and the morning of her surgery. We will schedule her port placement prior to her planned chemotherapy treatment but we will try to delay as long as possible to allow for initial medical treatment of her pulmonary embolization. I anticipate the port to be placed with monitored anesthesia care and local anesthetic. The patient is aware that this should be a lower risk intervention. I appreciate the ongoing opportunity of assisting with her surgical care CC: Dr. Enrrique Ohara and Dr. Tavo Valente M.D., F.A.C.S. 06/05/191806 <Electronically signed by Shreyas romano MD> Date _ Shreyas Valente MD cc: Tavo Mcdaniels MD; Enrrique Ohara MD ~* Signed Intake Vital Signs 06/05/19 Body Mass Index (BMI) 28.2 06/05/19 Height 5 ft 6 in 06/05/19 Weight: 170 lb 06/05/19 Body Mass Index (BMI) 27.4 06/05/19 Blood Pressure 155/95 H 06/05/19 Blood Pressure Location Rt brachial 06/05/19 Blood Pressure Position Sitting 06/05/19 Respiratory Rate 18 06/05/19 Pulse Rate 76 06/05/19 Pulse Source Monitor 06/05/19 Temperature 97.8 F 06/05/19 Temperature Source Oral 06/05/19 Pulse Ox 98 06/05/19 Oxygen Delivery Method room air Intake Visit Reasons: port consult--june Chief Complaint: 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 bilateral 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 Is patient in pain?: No Allergies erythromycin base Allergy (Intermediate, Verified 06/05/19 12:56) hives/itching benzonatate [From Anisha Nina] Allergy (Mild, Verified 06/05/19 12:56) Hives, itching Medications levothyroxine 100 mcg tablet 100 mcg PO DAILY 03/22/19 [History Confirmed 06/05/19] multivitamin tablet 1 tab PO DAILY 03/22/19 [History Confirmed 06/05/19] sumatriptan 25 mg tablet 12.5 mg PO ONCE PRN tab 03/22/19 [History Confirmed 06/05/19] hydrocodone 5 mg-acetaminophen 325 mg tablet 1 tab PO Q6H PRN #10 tab 04/24/19 [Rx Confirmed 06/05/19] lidocaine 5 % topical patch 1 patch TOPICAL DAILY PRN #15 ea 04/24/19 [Rx Confirmed 06/05/19] rivaroxaban 15 mg tablet 15 mg PO BID 06/05/19 [History Confirmed 06/05/19] PFSH Medical History (Updated 06/05/19 @ 13:13 by Shreyas Valente MD) Postoperative pulmonary embolism (Acute) Pulmonary embolism (Acute) Abnormal mammogram (Acute) Breast cancer (Acute ~02/2019) Hemorrhoids (Acute) History of back problems (Acute) Thyroid disease (Acute) Surgical History (Updated 06/05/19 @ 13:14 by Shreyas Valente MD) History of robot-assisted laparoscopic hysterectomy (Acute) History of robot-assisted laparoscopic hysterectomy (Acute) History of (Acute) History of abdominoplasty (Acute) History of arthroscopy of left shoulder (Acute) History of back surgery (Acute) History of bilateral mastectomy (Acute ~03/2019) History of endometrial ablation (Acute) History of tonsillectomy (Acute) Family History Mother Breast cancer Diabetes Son Diabetes Grandmother Breast cancer Social History (Updated 06/05/19 @ 13:16 by Shreyas Valente MD) Smoking Status: Never smoker alcohol intake: never substance use type: does not use HPI HPI HPI: JAX ASH, is a 54 F who presents to the office today for surgical consultation by Dr. Tavo Mcdaniels for placement of a port to facilitate chemotherapy for left breast cancer. The patient just within the past 2 weeks had a robotic hysterectomy performed at [facility]. Unfortunately 4 days ago she developed sudden onset of right chest pain was seen in the [place] emergency room is detected as have multiple pulmonary emboli on the right. She was initiated on Xarelto 15 mg orally twice daily. She is scheduled for a bilateral lower extremity venous duplex exam tomorrow. She has a upcoming appointment with her primary care physician Dr. Enrrique Ohara. She is to initiate chemotherapy on July 03, 2019. HPI HPI HPI: JAX ASH, is a 54 F who presents to the office today for ROS General General: No weight change, appetite, fatigue, colon cancer, breast cancer or weakness HEENT HEENT: No difficulty swallowing, eye injury, eye surgery, swollen glands or hoarseness Endo Endocrine: Yes thyroid disease; no diabetes mellitus, thyroid cancer, Hair loss, heat intolerance or cold intolerance Skin Skin: No rash or changing moles Breast Breast: Yes abnormal mammogram and abnormal US; no left breast lump, right breast lump, nipple discharge, breast pain or breast enlargement Musc Musculoskeletal: Yes back problems; no arthritis, rheumatoid arthritis, gout or joint pain Cardio Cardiovascular: No murmur, pacemaker, heart disease, atrial fibrillation, high blood pressure, heart attack, heart stent, palpitations, shortness of breat with exertion or chest pain Psych Psychiatric: No depression, anxiety or hearing voices Resp Respiratory: No shortness of breath, No sleep apnea, No cough, No COPD, No asthma, No emphysema, No wheezing Gastro Gastrointestinal: No abdominal pain, No nausea or vomiting, No diarrhea, No constipation, No blood in stool, No acid reflux, Yes hemorrhoids, No ulcers, No gallbladder problem, No black,tarry stools Jose Hematologic: No blood thinners, No blood disorders, No bleeding, No anemia, No blood clots Neuro Neurologic: No weakness Exam Const General: cooperative, healthy appearing, comfortable, no acute distress Nutritional Appearance: average body habitus Orientation: alert, awake [facility] Head: normal to inspection Chest Breast Palpation: No nipple discharge Other: Nicely healed bilateral mastectomy incisions Resp Effort & Inspection: normal respiratory effort Auscultation: clear to auscultation bilaterally Cardio Rate: regular rate Rhythm: regular rhythm Heart Sounds: no murmurs GI Palpation: soft, no hepatosplenomegaly Auscultation: normal bowel sounds Skin General: no rashes or lesions noted Neuro Cognition: normal cognition Extrem General: no calf tenderness bilaterally Psych Affect: normal affect Assessment & Plan Problems 1. Postoperative pulmonary embolism, initial encounter T81.718A; I26.99 2. History of robot-assisted laparoscopic hysterectomy Z90. 3. Malignant neoplasm of upper-inner quadrant of left breast in female, estrogen receptor positive C50.212 Plan I recommended to the patient a right internal jugular port placement and have discussed the technique, benefit, risks, alternatives. It is of note however that she has just incurred a right-sided multiple pulmonary embolization. We will check with Dr. Mcdaniels regarding timing of her initiation of chemotherapy. She is currently on Xarelto 15 mg orally twice daily for 21 days. This is the starter pack. We would likely have her hold her medication the evening before and the morning of her surgery. We will schedule her port placement prior to her planned chemotherapy treatment but we will try to delay as long as possible to allow for initial medical treatment of her pulmonary embolization. I anticipate the port to be placed with monitored anesthesia care and local anesthetic. The patient is aware that this should be a lower risk intervention. I appreciate the ongoing opportunity of assisting with her surgical care CC: Dr. Enrrique Ohara and Dr. Tavo Valente M.D., F.A.C.S. Coding Level of Care Code 41350 Diagnoses Postoperative pulmonary embolism, initial encounter T81.718A; I26.99 ??Encounter type: initial encounter History of robot-assisted laparoscopic hysterectomy Z90. Malignant neoplasm of upper-inner quadrant of left breast in female, estrogen receptor positive C50.212 ??Breast location: upper inner quadrant of breast ??Estrogen receptor status: positive 06/05/19 1317 <Electronically signed by Shreyas romano MD> Date _ Shreyas Valente MD Cosigner Signature: Date (if applicable) CC: Tavo Mcdaniels MD; Enrirque Ohara MD ~ I have re-examined the patient. There are no clinical changes since date of exam.
[2019-06-28] MEDS: Cefazolin 2 GM in 0.9% Normal Saline 100 ML IV (11:36)
--- NOTE | 2019-06-28 11:47 | DCINST_ITS ---
Discharge Diet: No Restrictions - Pain medication may cause nausea. You should typically eat light foods as you take your pain medication. Discharge Activity: Return to Normal Activity, May Shower - Leave the bandage on for 2-3 days. When you remove the bandage, leave the steri-strips intact until they fall off. Additional Activity Instructions:: May not drive, work with heavy equipment, or sign legal documents for [address] if you are no longer taking narcotic pain medications. You may drive when you are no longer taking pain medications. Additional Dressing/Incision Instructions:: Leave the bandage on for 2-3 days. When you remove the bandage, leave the steri-strips intact until they fall off. Allergies/Adverse Reactions: Allergies erythromycin base Allergy (Intermediate, Verified 06/28/19 09:47) hives/itching benzonatate [From Renettajohanne Nina] Allergy (Mild, Verified 06/28/19 09:47) Hives, itching Medications to take at Discharge levothyroxine 100 mcg tablet 100 mcg PO QHS 03/22/19 multivitamin tablet 1 tab PO DAILY 03/22/19 sumatriptan 25 mg tablet 12.5 mg PO ONCE PRN tab 03/22/19 lidocaine 5 % topical patch 1 patch TOPICAL DAILY PRN #15 ea 04/24/19 rivaroxaban 15 mg tablet 20 mg PO DAILY 06/05/19 Dexamethasone [Decadron] 8 mg PO BIDCM 21 Days #12 tab 06/06/19 Lidocaine/Prilocaine [Lidocaine-Prilocaine Cream] 1 applicatio TP DAILY PRN PRN 30 Days #1 tube 06/06/19 Ondansetron [Ondansetron Odt] 8 mg PO Q8H PRN PRN 10 Days #30 tab.rapdis 06/06/19 Prochlorperazine Maleate 10 mg PO Q6H PRN PRN 10 Days #30 tab 06/06/19 Cholecalciferol (Vitamin D3) [Vitamin D3] 2,000 unit PO DAILY 06/21/19 Docusate Sodium [Colace] 100 mg PO BID 06/21/19 Primary Care Physician: Enrrique Ohara MD [Primary Care Provider] - Test Results: Test results from this visit will be discussed in further detail at your follow- up appointment, if applicable. Please Follow Up With: Shreyas Valente MD - [phone] When: Office follow-up if needed
--- NOTE | 2019-06-28 11:47 | RAD_ITS ---
STUDY: X-RAY CHEST REASON FOR EXAM: Female, 54 years old. Port placement. TECHNIQUE: Single AP portable view of the chest. COMPARISON: Comparison is made with prior study dated April 02, 2019. FINDINGS: A right-sided michael catheter has been placed. The tip is in the proximal portion of the superior vena cava. Surgical clips are seen in the left axillary region. Hyperinflation. Stable mild increased markings at the left lung base suggest scarring. There is no demonstrated pleural abnormality. Normal size heart. Normal mediastinum and colleen. Normal visualized pulmonary arteries. Normal visualized aortic arch and descending thoracic aorta. There are degenerative changes of the visualized thoracic spine. Normal visualized ribs, clavicles, and shoulders. There is no demonstrated abnormality of the visualized soft tissue structures of the upper abdomen. RAD/CXR for Line Placement IMPRESSION: The tip of the right portacatheter is at the junction of the superior vena cava and right atrium. Electronically Signed: Harrison Cruz, at 13:36 EDT , Service support ,
[2019-06-28] MEDS: Bupivacaine Mpf 0.5% 30 ML VIAL (12:03)
--- NOTE | 2019-06-28 12:35 | OP.PCM_ITS ---
Problem List (1) Cancer of left female breast Status: Acute Qualifiers: Report of Operation Date of Procedure: 06/28/19 Pre-Operative Diagnosis: Left breast cancer Post-Operative Diagnosis: Same Surgery/Procedure Performed:: Right internal jugular port placement. Reference #[id number]. Lot [id number]. Primary date 02/24/2020 Description of Surgical Findings:: 54-year-old female was taken the operating room. She was placed on the table. The right neck and chest were sterilely prepped draped. Ancef 2 g given intravenously. 1% lidocaine mixed 50-50 with 0.5% Marcaine was used as a local anesthetic. Throughout the procedure total 10 cc was used. Under ultrasound guidance local was instilled and then a micropuncture needle inserted into the right internal jugular vein. Micropuncture wire inserted. Local instilled down the chest wall. A transverse incision was made second intercostal space electrocautery was used to make subtenons pocket. The tubing was tunneled from the neck to the chest. Under fluoroscopic control an 035 J-wire was inserted through the micropuncture sheath. Then the sheath dilator was inserted. The dilator wire removed. The catheter was advanced to the sheath. The sheath was split. The catheter was positioned at the SVC atrial junction. It was amputated at length and connected the port secured with port attachment device. The port was placed in the pocket secured with interrupted 2-0 silk. Skin edges approximated up to 3-0 Vicryl subdermal stitches. The neck was closed with interrupted 5-0 Vicryl subdermal stitch. The port was accessed and aspirated easily was flushed with saline and 2 and half cc of heparinized saline. Steri- Strips Telfa OpSite dressings applied. No additional pressure dressing was applied to the port site because of the patient's requirement for Xarelto therapy. Specimens none. Drains none. Blood loss minimal. The patient was taken to the recovery area in satisfactory condition without apparent complication. Stat portable chest x-ray is pending. Shreyas Valente M.D., F.A.C.S. Type of Anesthesia:: Local MAC Anesthesiologist: Binh Layne
== END 2019-06-28 14:06 | disposition home or self-care (01) ==
LOC: SDC 09:21 → AC 09:22
PROVIDERS: Family Provider Family Medicine; PCP Family Medicine; Referring Provider Surgery; Visit Provider Surgery
PROC: (CPT 36561; principal; 2019-06-28 11:15)
DX: Z45.2 Encounter for adjustment and management of vascular access device (principal); T81.718A Complication of other artery following a procedure, not elsewhere classified, initial encounter; I26.99 Other pulmonary embolism without acute cor pulmonale; C50.212 Malignant neoplasm of upper-inner quadrant of left female breast; Z17.0 Estrogen receptor positive status [ER+]; E07.9 Disorder of thyroid, unspecified; Z78.0 Asymptomatic menopausal state; Z79.01 Long term (current) use of anticoagulants; Z79.899 Other long term (current) drug therapy; Z88.1 Allergy status to other antibiotic agents; Z90.13 Acquired absence of bilateral breasts and nipples; Z90.710 Acquired absence of both cervix and uterus
CPT/HCPCS: 36561; 71045; 77001; J7120; C1769

== ENCOUNTER 2019-07-29 16:13 | Emergency (ER) | payer OTHER, SELFPAY ==
[2019-07-24 09:19] VITALS: BMI 28.5
[2019-07-29 16:14] VITALS: BP 128/71; PULSE 91; RESP 14; TEMP 36.6; O2SAT 97; BMI 28.1
--- NOTE | 2019-07-29 16:31 | ED.DCSUM_ITS ---
History of Present Illness Chief Complaint: Shortness of Breath Detail of Chief Complaint: Generalized weakness, concern for dehydration Informant: Patient Onset: Days Context: Gradual Onset Narrative: Patient underwent her second chemotherapy treatment on July 24. She states for the next couple days she was just wiped out, fatigued, laying around on the couch. Today she try to make herself get up and do more activity. She feels easily tired with any activity and somewhat short of breath with exertion. She denies chest pain. She is concerned that she is dehydrated. She states the last time she got chemotherapy, 3 and half weeks ago, she waited too long and was dehydrated so she came in today for fluids. Patient is currently on Xarelto secondary to a history of PE after hysterectomy. Past Medical History - Allergies and Home Meds Allergies/Adverse Reactions: Allergies erythromycin base Allergy (Intermediate, Verified 07/29/19 16:14) hives/itching benzonatate [From Tessalon Perles] Allergy (Mild, Verified 07/29/19 16:14) Hives, itching Primary Care Physician: Enrrique Ohara MD [Primary Care Provider] - Prior records reviewed: Yes Past Medical History: - - Reviewed Lives: With Family Smoking Status: Never smoker Review of Systems General: Reports: Chills. Denies: Fever Eyes: Denies: Visual changes - bilaterally ENT: Denies: Bilateral ear pain Cardiovascular: Denies: Chest pain, Palpitations Respiratory: Reports: Dyspnea - With exertion. Denies: Cough Gastrointestinal: Reports: Nausea. Denies: Abdominal pain, Vomiting, Diarrhea Genitourinary: Denies: Dysuria Skin: Denies: Rash Neurological: Reports: Weakness - Generalized weakness. Denies: Headache Hematologic: Denies: Easy bruising Allergy: Denies: Uticaria Physical Exam Vital Signs/Narrative: Vital Signs Temp Pulse Resp BP Pulse Ox 07/29/19 16:14 98 F 91 14 128/71 H 97 Inital Vital Signs reviewed: Yes General: Well nourished, Well developed Head: Normocephalic ENT: Moist mucous membranes Neck: Supple Cardiovascular: Regular rate, Regular rhythm Respiratory: No distress, CTA bilaterally Abdomen: Soft, Nontender Extremities: Nontender Skin: Normal color, No rash Neurological: Alert, Oriented x3 Psychological: Normal affect Diagnostic/Tx/Re-eval Laboratory Results 07/29/19 07/29/19 07/29/19 16:45 16:45 17:30 WBC 4.0 L RBC 3.76 L Hgb 11.4 L Hct 35.1 L MCV 93.4 MCH 30.3 MCHC 32.5 RDW Std Deviation 44.2 H RDW Coeff of Jose 13.0 Plt Count 133 L MPV 9.7 Immature Gran % (Auto) 1.000 H Neut % (Auto) 53.2 Lymph % (Auto) 34.3 Morris % (Auto) 6.1 Eos % (Auto) 5.1 H Baso % (Auto) 0.3 Absolute Neuts (auto) 2.1 Absolute Lymphs (auto) 1.36 Nucleated RBC % 0 Differential Comment SCANNED Atypical Lymphocytes RARE Platelet Estimate SLT DEC RBC Morphology NORM C+C Sodium 141 Potassium 4.0 Chloride 106 Carbon Dioxide 28.0 Anion Gap 7 BUN 10 Creatinine 0.68 Estim Creat Clear Calc 86.48 Est GFR (MDRD) Af Amer 115 Est GFR (MDRD) Non-Af 95 BUN/Creatinine Ratio 14.7 Glucose 80 Calcium 8.6 Urine Color Yellow Urine Clarity Clear Urine pH 7.0 Ur Specific [place] 1.010 Urine Protein Negative Urine Glucose (UA) Normal Urine Ketones Negative Urine Occult Blood Negative Urine Nitrite Negative Urine Bilirubin Negative Urine Urobilinogen Normal Ur Leukocyte Esterase Negative Urine RBC 0 SEEN Urine WBC 0 SEEN Ur Squamous Epith Cells 0 SEEN Urine Bacteria 0 SEEN Urine Mucus 0 SEEN - Medical Decision Making Patient was given a liter of IV fluids here. On repeat evaluation she does feel somewhat improved. I will speak with whoever is covering for oncology. She states she is supposed to follow-up on for repeat labs. ED Disposition - Plan for ED Patient: Disposition: Home or Assisted Living Diagnosis: Myalgia Instructions: Myalgias Referrals: Tavo Mcdaniels MD [STAFF PHYSICIAN] -
[2019-07-29 16:43] VITALS: BP 128/71; PULSE 90; RESP 17; TEMP 36.7; O2SAT 98
[2019-07-29] MEDS: 0.9% Normal Saline 1,000 ML 1000 ML IV (16:53)
[2019-07-29 17:05] LABS: Absolute Lymphocyte Count 1.36 X10^3/uL (0.83-4.51); Absolute Neutrophil Count 2.1 X10^3/uL (2.0-7.7); Basophil# 0.01 X10^3/uL; Basophil% 0.3 % (0-1); Eosinophils% 5.1 % (0-5); Hematocrit 35.1 % (37-47); Hemoglobin 11.4 g/dL (12.0-15.0); Lymphocyte # 1.36 X10^3/ul (4.0); Lymphocyte % 34.3 % (19-41); Mean Corp Hgb Conc 32.5 g/dL (32-36); Mean Corpuscular Hgb 30.3 pg (27.0-32.0); Mean Corpuscular Volume 93.4 fL (81-99); Mean Platelet Vol. 9.7 fl (6.2-12.0); Monocyte# 0.24 X10^3/uL; Monocyte% 6.1 % (0-10); NRBC Flagged by Analyzer 0 % (0-5); Neutrophil # 2.11 X10^3/uL (2.7-7.7); Neutrophil % 53.2 % (47-70); POSITIVE MORPHOLOGY YES; Platelet Count 133 K/mm3 (150-450); RBC Distribution Width SD 44.2 fl (35.1-43.9); Red Blood Count 3.76 M/mm3 (4.2-5.4)
[2019-07-29 17:16] LABS: Differential Indicated SCAN CRITERIA MET
[2019-07-29 17:22] LABS: Anion Gap 7 (5-15); BUN 10 mg/dL (7-18); BUN/Creat Ratio 14.7 RATIO (10-20); Calcium,Total 8.6 mg/dL (8.5-10.1); Chloride 106 mmol/L (98-107); Creatinine, Serum 0.68 mg/dL (0.55-1.02); EST Glomerular Filtration Rate 95 mL/min (>60); Est Glom Filt Rate - Afr Amer 115 mL/min (>60); Estimated Creatinine Clearance 86.48 ml/min; Glucose 80 mg/dL (74-106); Sodium Level 141 mmol/L (136-145)
[2019-07-29 17:36] VITALS: BP 102/75; PULSE 74; RESP 17; TEMP 36.7; O2SAT 94
[2019-07-29 17:36] LABS: Bacteria 0 SEEN /hpf (None Seen); Mucous, Urine 0 SEEN /hpf (<or=2+); Red Blood Cells-Urine 0 SEEN /hpf (0-5); Squamous Epithelial Cells - UA 0 SEEN /hpf (5-10); White Blood Cells 0 SEEN /hpf (0-5)
[2019-07-29 17:37] LABS: Color, Urine Yellow (Yellow); Glucose, Dipstick Normal (Normal); Ketone-Dipstick Negative (Negative); Leukocyte Esterase-Dipstick Negative /ul (Negative); Nitrite-Dipstick Negative (Negative); Occult Blood-Urine Negative /ul (Negative); Protein-Dipstick Negative (Negative); Urine Bilirubin Dipstick Negative (Negative); Urine Clarity Clear (Clear); Urine Urobilinogen Normal (Normal)
[2019-07-29 18:17] LABS: Atypical Lymphocyte RARE %; Differential Comment SCANNED; Platelet Estimate SLT DEC (ADEQ); Red Cell Morphology NORM C+C NORMAL (NORM C&C)
[2019-07-29 19:20] VITALS: BP 117/71; PULSE 78; RESP 15; O2SAT 98
== END 2019-07-29 19:22 | disposition home or self-care (01) ==
PROVIDERS: Emergency Provider Emergency Medicine; Family Provider Family Medicine; PCP Family Medicine
DX: M79.10 Myalgia, unspecified site (principal); R11.0 Nausea; Z79.01 Long term (current) use of anticoagulants; Z79.899 Other long term (current) drug therapy; Z86.711 Personal history of pulmonary embolism; Z90.710 Acquired absence of both cervix and uterus; Z88.1 Allergy status to other antibiotic agents
CPT/HCPCS: 36591; 80048; 81001; 85025; 96361; 96374; 99284; J7030; A4216

== ENCOUNTER 2019-09-25 06:24 | Day surgery (SDC) | payer OTHER, SELFPAY ==
[2019-09-05 13:50] VITALS: BMI 29.0
[2019-09-11 11:34] VITALS: BMI 27.8
[2019-09-25] VITALS (7 sets, daily range): BP systolic 91–117; BP diastolic 58–82; PULSE 65–91; RESP 16–18; TEMP 36.4–36.7; O2SAT 97–100; BMI 28.6
--- NOTE | 2019-09-25 07:00 | PCM.HP.STD ---
Problem List (1) Screening for intestinal cancer Status: Acute History of Present Illness Date of Admission: 09/25/19 The patient is a 54 year old F who is had a fairly recent history of breast cancer. She is underwent extensive breast surgery and then subsequent hysterectomy. During her postoperative hysterectomy she did develop a DVT. That currently has improved. She has had a very remote colonoscopy. She presents via our open access program for screening colonoscopy. Past Medical History Medical History: Medical History (Last Reviewed 09/11/19 @ 11:32 by Marsha Persaud) Postoperative pulmonary embolism (Acute) T81.718A, I26.99 Abnormal mammogram R92.8 Breast cancer Onset Date: ~02/2019 C50.919 Hemorrhoids K64.9 History of back problems PORT PLACEMENT 06-28-19 Pulmonary embolism I26.99 Thyroid disease E07.9 Allergies erythromycin base Allergy (Intermediate, Verified 09/25/19 06:59) hives/itching benzonatate [From Tessalon Perles] Allergy (Mild, Verified 09/25/19 06:59) Hives, itching Home Medications: Ambulatory Orders Medication Instructions Recorded levothyroxine 100 mcg tablet 100 mcg PO QHS 03/22/19 multivitamin 1 tab PO DAILY 03/22/19 sumatriptan succinate 25 mg tablet 12.5 mg PO ONCE PRN tab 03/22/19 Cholecalciferol (Vitamin D3) 2,000 unit PO DAILY 06/21/19 [Vitamin D3] Docusate Sodium [Colace] 100 mg PO BID 06/21/19 Ascorbic Acid [Vitamin C] 480 mg PO DAILY 09/21/19 Surgical History: Surgical History (Last Reviewed 09/11/19 @ 11:32 by Marsha Persaud) History of robot-assisted laparoscopic hysterectomy (Acute) Z90.710 History of Z98.891 History of abdominoplasty Z98.890 History of arthroscopy of left shoulder Z98.890 History of back surgery Z98.890 History of bilateral mastectomy Onset Date: ~03/2019 Z90.13 History of endometrial ablation Z98.890 History of robot-assisted laparoscopic hysterectomy Z90.710 History of tonsillectomy Z90.89 Smoking Status: Never smoker Tobacco Use: Non-smoker Review of Systems Constitutional: Denies: Anorexia HEENT: Denies: Difficulty Swallowing Cardiovascular: Denies: Chest Pain Gastrointestinal: Denies: Abdominal Pain, Melena VTE Information - Inpt Only VTE Present on Admission: No Patient Problems: Active and Suspected Problems (Last Reviewed 09/11/19 @ 11:32 by Marsha Persaud) Screening for intestinal cancer (Acute) - Physical Exam Vitals/I&O's: Body Mass Index (BMI) 27.8 General: Alert, Oriented x3, Cooperative, No apparent distress Lungs: Clear to auscultation, Normal air movement Cardiovascular: Regular rate, Regular Rhythm Abdomen: Bowel Sounds Present, Soft, Non Tender Extremities: No Calf Tenderness Assessment/Plan All Active Problems (Last Reviewed 09/11/19 @ 11:32 by Marsha Persaud) Cancer of left female breast (Acute) Encounter for education (Acute) Nausea (Acute) Alternating constipation and diarrhea (Acute) Dehydration (Acute) Diarrhea (Acute) Screening for intestinal cancer (Acute) History of robot-assisted laparoscopic hysterectomy (Acute) Postoperative pulmonary embolism (Acute) The patient presents via open access for screening colonoscopy with possible biopsy or polypectomy is indicated. She is aware of the technique, benefit, risks, alternatives. She has had an opportunity to ask and have questions answered. We will proceed as noted. Shreyas Valente M.D., F.A.C.S.
[2019-09-25] MEDS: Lactated Ringers 1,000 ML 100 ML IV (07:23)
--- NOTE | 2019-09-25 07:50 | EKG12_ITS ---
Test Reason : POSTOP Blood Pressure : / mmHG Vent. Rate : 073 BPM Atrial Rate : 073 BPM P-R Int : 158 ms QRS Dur : 082 ms QT Int : 426 ms P-R-T Axes : 057 041 040 degrees QTc Int : 469 ms Normal sinus rhythm Low voltage QRS (Limb Leads) Confirmed by VLADIMIR CHACKO, AIDLIA ([id number]), index editor GABO GRACIA ([id number]) on 09/27/2019 11:49:42 AM Referred By: Enrrique Ohara Confirmed By:ADILIA GILBERT MD
--- NOTE | 2019-09-25 07:57 | OP.COLON_ITS ---
Patient Name: Julia Klein Procedure Date: 09/25/2019 7:31 AM Date of : 1965 Age: 54 Procedure: Colonoscopy Indications: Screening for colorectal malignant neoplasm Providers: Shreyas Valente MD Referring MD: Enrrique Ohara Medicines: See the Anesthesia note for documentation of the administered medications Patient Profile: Last Colonoscopy: none. The patient's first colonoscopy is today. Complications: No immediate complications. Procedure: Pre-Anesthesia Assessment: - Prior to the procedure, a History and Physical was performed, and patient medications and allergies were reviewed. The patient's tolerance of previous anesthesia was also reviewed. The risks and benefits of the procedure and the sedation options and risks were discussed with the patient. All questions were answered, and informed consent was obtained. Prior Anticoagulants: The patient has taken no previous anticoagulant or antiplatelet agents. ASA Grade Assessment: II - A patient with mild systemic disease. After reviewing the risks and benefits, the patient was deemed in satisfactory condition to undergo the procedure. After I obtained informed consent, the scope was passed under direct vision. Throughout the procedure, the patient's blood pressure, pulse, and oxygen saturations were monitored continuously. The pediatric colonoscope was introduced through the anus and advanced to the cecum, identified by appendiceal orifice and ileocecal valve. The colonoscopy was performed without difficulty. The patient tolerated the procedure well. The quality of the bowel preparation was good. The ileocecal valve and the appendiceal orifice were photographed. Scope In: 7:39:47 AM Scope Withdrawal Time 0 hours 7 minutes 9 seconds Scope Out: 7:52:39 AM Total Procedure Duration Time 0 hours 12 minutes 52 seconds Findings: The perianal and digital rectal examinations were normal. Scattered diverticula were found in the sigmoid colon. The exam was otherwise without abnormality. Impression: - Diverticulosis in the sigmoid colon. - The examination was otherwise normal. - No specimens collected. Personal history of breast cancer Recommendation: - Discharge patient to home. - Resume previous diet. - Continue present medications. - Repeat colonoscopy for screening purposes. Procedure Code(s): --- Professional --- 74226, Colonoscopy, flexible; diagnostic, including collection of specimen(s) by brushing or washing, when performed (separate procedure) Diagnosis Code(s): --- Professional --- Z12.11, Encounter for screening for malignant neoplasm of colon K57.30, Diverticulosis of large intestine without perforation or abscess without bleeding CPT copyright 2017 [employer]. All rights reserved. The codes documented in this report are preliminary and upon sales representative womens health review may be revised to meet current compliance requirements. Shreyas Valente MD 09/25/2019 7:56:59 AM This report has been signed electronically. Number of Addenda: 0 Note Initiated On: 09/25/2019 7:31 AM
== END 2019-09-25 09:09 | disposition home or self-care (01) ==
LOC: EN 06:24 → ACINP 06:30 → AC 06:34
PROVIDERS: Family Provider Family Medicine; PCP Family Medicine; Referring Provider Family Medicine; Visit Provider Surgery
PROC: 0DJD8ZZ Inspection of Lower Intestinal Tract, Via Natural or Artificial Opening Endoscopic (ICD-10-PCS; CPT 45378; principal; 2019-09-25 07:25)
DX: Z12.11 Encounter for screening for malignant neoplasm of colon (principal); K57.30 Diverticulosis of large intestine without perforation or abscess without bleeding; E07.9 Disorder of thyroid, unspecified; G43.909 Migraine, unspecified, not intractable, without status migrainosus; Z85.3 Personal history of malignant neoplasm of breast; Z86.711 Personal history of pulmonary embolism
CPT/HCPCS: 45378; 93005; J7120; A4216; J2405

== ENCOUNTER → 2021-06-16 15:55 | Outpatient (CLI) | payer OTHER, SELFPAY ==
[2021-03-16 13:28] VITALS: BMI 30.2
--- NOTE | 2021-06-16 16:08 | BD_ITS ---
STUDY: DUAL ENERGY X-RAY ABSORPTIOMETRY / DXA REASON FOR EXAM: Female, 56 years old. SCREENING FOR OSTEOPOROSIS TECHNIQUE: Bone Mineral Density (BMD) measurements of lumbar spine and bilateral hips were obtained. COMPARISON: Comparison is made with prior study of 06/12/2019. FINDINGS: Lumbar Spine (L1-L4): g/cm2 (1.118) / T-score (0.6) / Z-score (1.9) Findings are suggestive of normal bone density with a low fracture risk. Left Femur Total: g/cm2 (0.899) / T-score (-0.4) / Z-score (0.5) Left Femoral Neck: g/cm2 (0.741) / T-score (-1.0) / Z-score (0.2) Right Femur Total: g/cm2 (0.973) / T-score (0.3) / Z-score (1.1) Right Femoral Neck: g/cm2 (0.799) / T-score (-0.4) / Z-score (0.8) The T-Scores on the most recent prior examination were: Lumbar Spine (L1-L4): There has been worsening of bone density since the previous examination. Left Femur Total: which represents an improvement of 0.8%. Right Femur Total: which represents an improvement of 12.5%. BD/Dexa Bone Density Study IMPRESSION: The patient is considered normal as outlined below according to [employer] (WHO) criteria with a low fracture risk. There has been improvement of bone density since the previous examination. Reference Information: The T-score is the number of standard deviations above or below the standard which is normal for young adults at their peak bone mineral density. The World Health Organization (WHO) interprets the T-scores as follows: Above -1 Normal bone density Between -1 and -2.5 Osteopenia Equal to / or below -2.5 Osteoporosis As a practical clinical guideline, osteopenia may be graded as follows: Mild -1 through -1.5 Moderate -1.6 through -2.0 Severe -2.1 through -2.4 The Z-score is the number of standard deviations above or below age-matched controls. A Z-score of less than -1.5 would be considered abnormal. References: 1. NIH Osteoporosis and Related Bone Diseases www osteo.org 2. International Society for Clinical Densitometry www iscd.org 3. National Osteoporosis Foundation www nof.org Electronically Signed: Harrison Cruz MD at 14:55 EDT , Service support ,
== END ==
PROVIDERS: PCP Family Medicine; Referring Provider Internal Medicine Hematology & Oncology; Visit Provider Internal Medicine Hematology & Oncology
DX: Z13.820 Encounter for screening for osteoporosis (principal); Z79.811 Long term (current) use of aromatase inhibitors
CPT/HCPCS: 77080

== ENCOUNTER → 2023-06-21 | Outpatient (CLI) | payer OTHER, SELFPAY ==
--- NOTE | 2023-06-21 12:27 | BD_ITS ---
STUDY: DUAL ENERGY X-RAY ABSORPTIOMETRY / DXA REASON FOR EXAM: Female, 58 years old. SCREENING TECHNIQUE: Bone Mineral Density (BMD) measurements of lumbar spine and bilateral hips were obtained. COMPARISON: Comparison is made with prior study of June 16, 2021. FINDINGS: Lumbar Spine (L1-L4): g/cm2 (1.046) / T-score (-0.1) / Z-score (1.4) Findings are suggestive of normal bone density with a low fracture risk. Left Femur Total: g/cm2 (0.900) / T-score (-0.3) / Z-score (0.6) Left Femoral Neck: g/cm2 (0.787) / T-score (-0.6) / Z-score (0.7) Right Femur Total: g/cm2 (0.917) / T-score (-0.2) / Z-score (0.8) Right Femoral Neck: g/cm2 (0.795) / T-score (-0.5) / Z-score (0.8) The T-Scores on the most recent prior examination were: Lumbar Spine (L1-L4): There has been worsening of bone density since the previous examination. Left Femur Total: which represents an improvement of 0.1%. Right Femur Total: which represents a worsening of 5.8%. BD/Dexa Bone Density Study IMPRESSION: The patient is considered normal as outlined below according to [employer] (WHO) criteria with a low fracture risk. There has been worsening of bone density since the previous examination. Reference Information: The T-score is the number of standard deviations above or below the standard which is normal for young adults at their peak bone mineral density. The World Health Organization (WHO) interprets the T-scores as follows: Above -1 Normal bone density Between -1 and -2.5 Osteopenia Equal to / or below -2.5 Osteoporosis As a practical clinical guideline, osteopenia may be graded as follows: Mild -1 through -1.5 Moderate -1.6 through -2.0 Severe -2.1 through -2.4 The Z-score is the number of standard deviations above or below age-matched controls. A Z-score of less than -1.5 would be considered abnormal. References: 1. NIH Osteoporosis and Related Bone Diseases www osteo.org 2. International Society for Clinical Densitometry www iscd.org 3. National Osteoporosis Foundation www nof.org Electronically Signed: Harrison Cruz MD at 14:54 EDT ,
== END | disposition home or self-care (01) ==
LOC: OPBD 12:23
PROVIDERS: PCP Family Medicine; Referring Provider Internal Medicine Hematology & Oncology; Visit Provider Internal Medicine Hematology & Oncology
DX: C50.912 Malignant neoplasm of unspecified site of left female breast (principal); Z79.899 Other long term (current) drug therapy; Z78.0 Asymptomatic menopausal state
CPT/HCPCS: 77080

== ENCOUNTER → 2025-07-02 | Outpatient (CLI) | payer OTHER, SELFPAY ==
--- NOTE | 2025-07-02 09:57 | BD_ITS ---
PROCEDURE: DEXA BONE DENSITY STUDY 07/02/2025 REASON FOR EXAM: SCREENING FOR OSTEOPOROSIS F, age 60 y/o . Postmenopausal. TECHNIQUE: Procedure Code: BDDBD Modality: DX Procedure: DEXA BONE DENSITY STUDY COMPARISON: Prior study dated June 21, 2023. FINDINGS: BMD and T-SCORES Lumbar spine: 1.042 g/cm2, T-score -0.1 Levels: L1 through L4 Change from prior: Loss of 0.4%. Left femoral neck: 0.763 g/cm2, T-score -0.8 Femoral neck comparison data not recommended for monitoring change. Left total hip: 0.870 g/cm2, T-score -0.6 Change from prior: Loss of 3.3%. Right femoral neck: 0.786 g/cm2, T-score -0.6 Femoral neck comparison data not recommended for monitoring change. Right total hip: 0.906 g/cm2, T-score -0.3 Change from prior: Loss of 1.1%. The World Health Organization has defined the following categories based on bone density: Normal bone density: T-score equal to or greater than -1.0 Osteopenia: T-score between -1.0 and -2.5 Osteoporosis: T-score equal to or less than -2.5 FRAX (or Comparable) Fracture Risk Assessment: 10 Year Probability of Fracture: Major Osteoporotic Fracture: 12th% Hip Fracture: 0.7% (Note: FRAX is not to be reported in setting of normal range bone density, osteoporosis on DEXA, known history of osteoporosis, prior osteoporotic hip or vertebral fracture, or for any patient undergoing pharmacological treatment for bone loss.) The National Osteoporosis Foundation (NOF) recommends pharmacological treatment for patients with a FRAX 10-year risk of 3% or higher for a hip fracture, or 20% or higher for a major osteoporotic fracture, to prevent osteoporosis and reduce fracture risk. The patient does not meet the pharmacological treatment recommendations for prevention of osteoporosis. BD/Dexa Bone Density Study IMPRESSION: NORMAL T-SCORES. Recommend follow-up as clinically warranted. Reading Location: [facility]
== END | disposition home or self-care (01) ==
PROVIDERS: PCP Family Medicine; Referring Provider Internal Medicine Hematology & Oncology; Visit Provider Internal Medicine Hematology & Oncology
DX: Z13.820 Encounter for screening for osteoporosis (principal); C50.212 Malignant neoplasm of upper-inner quadrant of left female breast; Z78.0 Asymptomatic menopausal state; Z17.0 Estrogen receptor positive status [ER+]
CPT/HCPCS: 77080